=== PATIENT | female | born 1990 | race Caucasian/White ===

== ENCOUNTER 2018-08-08 08:23 | Emergency (ER) | payer OTHER, MEDICAID, SELFPAY ==
[2018-08-08 08:29] VITALS: BP 153/89; PULSE 84; RESP 12; TEMP 37; O2SAT 98
--- NOTE | 2018-08-08 08:55 | ED_ITS ---
HPI - Nausea/Vomiting/Diarrhea General Chief complaint: Nausea/Vomiting/Diarrhea Stated complaint: Throwing up and feeling faint Time Seen by Provider: 08/08/18 08:53 Source: patient Mode of arrival: ambulatory Limitations: no limitations History of Present Illness HPI Narrative: Patient states she has been vomiting and having diarrhea since yesterday morning. She states she was up most of the night vomiting bilious type material. She denies fever, dysuria, or vaginal symptoms. She states she is otherwise healthy, except for some intermittent problems with stomach ulcers over the last 10 years. She denies any hematemesis. She has not had an endoscopy at any time recently, and takes [id number] omeprazole once symptoms flare up. Patient denies sick contacts. No other complaints at this time. Patient states she just finished her period yesterday. MD complaint: nausea, vomiting and diarrhea Onset (ago): day(s) ( 1) Description of Vomiting: bilious Description of Diarrhea: watery Associated Abdominal Pain: Yes ( stabbing, mid abdominal.) Location of pain: periumbilical Radiation: does not radiate Severity: moderate Severity scale (1-10): 4 Quality: cramping and stabbing Pain Consistency: constant Relieving factors: none Exacerbating factors: vomiting Context: other ( No foreign travel or possible food poisoning that patient can identify. No recent antibiotic use or procedure. No abdominal surgery history. ) Associated symptoms: denies other symptoms Related Data Home Medications Medication Instructions Recorded Confirmed multivitamin 1 tab PO DAILY 08/08/18 08/08/18 sertraline 50 mg PO DAILY 08/08/18 08/08/18 trazodone 50 mg PO BEDTIME PRN 08/08/18 08/08/18 Previous Rx's Medication Instructions Recorded ondansetron [Zofran ODT] 4 mg PO Q6-8H PRN #7 tab 08/08/18 Allergies Allergy/AdvReac Type Severity Reaction Status Date / Time codeine Allergy Verified 08/08/18 08:34 Sulfa (Sulfonamide Allergy Verified 08/08/18 08:34 Antibiotics) Review of Systems Review of Systems All systems reviewed & are unremarkable except as noted in HPI and below Constitutional Denies chills, Denies fever(s), Denies lethargy and Denies weakness Eyes Denies change in vision, Denies eye discharge, Denies irritation and Denies loss of vision ENT Ears, Nose, Mouth, and Throat: Denies change in voice, Denies neck pain and Denies sore throat Cardiovascular Denies chest pain, Denies irregular heart rhythm, Denies lightheadedness, Denies palpitations, Denies dyspnea, Denies dyspnea on exertion and Denies orthopnea Respiratory Denies cough, Denies dyspnea, Denies dyspnea on exertion and Denies wheezing Gastrointestinal Gastrointestinal: Reports abdominal pain, Denies change in bowel habits, Reports diarrhea, Reports nausea and Reports vomiting Genitourinary Denies hematuria, Denies flank pain, Denies urinary incontinence and Denies urinary urgency Musculoskeletal Denies neck pain Integumentary/Breasts Denies pruritus, Denies erythema, Denies rash and Denies wounds Neurologic Denies confusion, Denies loss of vision and Denies weakness Psychiatric Denies anxiety, Denies confusion, Denies depression, Denies homicidal ideation and Denies suicidal ideation Endocrine Denies palpitations Hematologic/Lymphatic Denies easy bruising Allergic/Immunologic Denies wheezing PFSH Medical History Peptic ulcer disease (Acute) Surgical History History of esophagogastroduodenoscopy (EGD) (Acute) Social History Smoking Status: Never smoker Exam Initial Vital Signs Initial Vital Signs: Vital Signs Temperature 98.6 F 08/08/18 08:29 Pulse Rate 84 08/08/18 08:29 Respiratory Rate 12 08/08/18 08:29 Blood Pressure 153/89 H 08/08/18 08:29 Pulse Oximetry 98 08/08/18 08:29 Const General: cooperative and well developed Nutritional Appearance: well nourished Orientation: alert, awake, oriented x3 and not confused [facility] Head: normocephalic and atraumatic Ears: external ears normal and TM's normal bilaterally Nose: external nose normal and No nasal discharge Face and sinus: sinuses nontender, face symmetric, no sinus tenderness and No dry mucous membranes Mouth: oral mucosae normal and moist mucous membranes Teeth and gingiva: dentition normal Throat: tonsils normal and uvula midline Eyes General: appearance normal, both eyes and all related structures Eyelids: eyelids normal Conjunctivae: conjunctivae normal Sclera: sclerae normal Pupils: PERRL EOM: EOM intact bilaterally Neck Neck: normal visual inspection, trachea midline, No lymphadenopathy, No midline deformity and No JVD Lymphatic: No lymphedema Chest Chest: normal inspection of the chest Resp Effort & Inspection: normal respiratory effort, able to speak in complete sentences, no respiratory distress and no use of accessory muscles Auscultation: clear to auscultation bilaterally, no rales, no rhonchi and no wheezes Cardio Rate: regular rate Rhythm: regular rhythm Heart Sounds: no click, no gallops, no murmurs and no rubs Pulses: normal peripheral pulses GI Inspection: non-distended Palpation: soft, no hepatosplenomegaly, No guarding, No pulsatile mass and tender ( periumbilical and diffuse lower abdominal) Auscultation: normal bowel sounds Back/Spine/Pelvis Back: No CVA tenderness Cervical Spine: cervical ROM normal and No pain with cervical ROM Thoracic/Lumbar Spine: thoracic and lumbar spine normal to inspection Skin General: no rashes or lesions noted, No jaundice and No petechiae Neuro General: alert, oriented x3, gait normal and no focal motor deficits Speech: speech normal Extrem General: full ROM, no clubbing, cyanosis or edema, no pedal edema and no calf tenderness Psych Appearance: well kempt Mental Status: mental status grossly normal Attitude: cooperative Thought Content: normal and suicidality Judgment: judgment good Course Course Narrative: Patient was treated symptomatically with IV fluids and Zofran. She was worked up with CBC, CMP, and lipase, as well as urinalysis. Orders Ordered: Discontinued Medications Sodium Chloride (Normal Saline 0.9%) 1,000 mls @ 1,000 mls/hr IV BOLUS ONE Stop: 08/08/18 10:02 Last Infusion: 08/08/18 11:27 Dose: 0 mls/hr Admin: 08/08/18 09:41 Dose: 1,000 mls/hr Ondansetron HCl (Zofran) 4 mg IV NOW ONE Stop: 08/08/18 09:04 Last Admin: 08/08/18 09:41 Dose: 4 mg Vital Signs - 8 hr 08/08/18 08:29 Temperature 98.6 F Pulse Rate 84 Respiratory Rate 12 Blood Pressure 153/89 H Pulse Oximetry 98 MDM - Nausea/Vomiting/Diarrhea Medical Records Attestation: I reviewed the patient's medical records. Lab Data Attestation: I reviewed the patient's lab results. Result diagrams: 08/08/18 08:30 08/08/18 09:36 Lab Results 08/08/18 08/08/18 08/08/18 Range/Units 08:30 08:30 09:36 WBC 6.4 (4.5-11.0) X10^3/uL RBC 4.72 (4.0-5.2) X10^6/uL Hgb 15.4 (12.0-16.0) g/dL Hct 43.7 (36-46) % MCV 92.6 (80-100) fL MCH 32.5 (26-34) PG MCHC 35.1 (30-36) % RDW 13.5 (11.6-14.8) % Plt Count 231 (150-400) X10^3/uL Neut % (Auto) 69.0 (50-75) % Lymph % (Auto) 20.3 L (25-40) % [place] % (Auto) 9.4 (3-14) % Eos % (Auto) 0.5 L (2-4) % Baso % (Auto) 0.8 (0-2) % Neut # (Auto) 4400 (2469-3427) /uL Sodium Cancelled 138 Potassium Cancelled 4.4 Chloride Cancelled 101 Carbon Dioxide Cancelled 25 BUN Cancelled 18 H Creatinine Cancelled 0.50 L Estimated GFR Cancelled > 60.0 BUN/Creatinine Ratio Cancelled 36.0 H Glucose Cancelled 81 Calcium Cancelled 8.9 Total Bilirubin Cancelled 0.7 AST Cancelled 64 H ALT Cancelled 45 Alkaline Phosphatase Cancelled 77 Total Protein Cancelled 7.5 Albumin Cancelled 4.5 Globulin Cancelled 3.0 Albumin/Globulin Ratio Cancelled 1.5 Lipase Cancelled 39 Specimen Hemolysis Cancelled Point of Care Testing Test Results Negative Urine Dip Bedside Urine Glucose Negative Bedside Urine Bilirubin - Negative Bedside Urine Ketone +/- 5 Urine Specific [place] 1.020 Bedside Urine Occult Blood - Negative Bedside Urine pH 6.5 Bedside Urine Protein +/- 15 Bedside Urine Urobilinogen - Negative Bedside Urine Nitrite - Negative Bedside Urine Leukocytes - Negative Esterase MDM Narrative Medical decision making narrative: The patient was feeling better after symptomatic treatment. Her workup was unremarkable. I felt the patient most likely has gastroenteritis, and we have discussed symptomatic management at home for this. We have also discussed the usual indications for return. Discharge Plan Departure Patient Disposition: Home Clinical Impression: Gastroenteritis Discharge Date/Time: 10/02/18 12:16 Interventions: ED Discharge Assessment Last Done: 08/08/18 12:15 Instructions: DI for Viral Gastroenteritis -- Adult Activity Restrictions/Additional Instructions: Your labs look good. You most likely have 1 of the viruses that are going around and causing vomiting and diarrhea. Please take them nausea medicine, as needed, and follow up with your primary care physician. Prescriptions: New ondansetron [Zofran ODT] 4 mg tablet,disintegrating 4 mg PO Q6-8H PRN (Reason: nausea and vomiting) Qty: 7 RF: 0 No Action multivitamin Tablet 1 tab PO DAILY RF: 0 trazodone 50 mg tablet 50 mg PO BEDTIME PRN (Reason: Sleep) RF: 0 sertraline 50 mg tablet 50 mg PO DAILY RF: 0
[2018-08-08 09:11] LABS: Add Manual Diff / Slide Review NO; Basophils Percent Auto 0.8 % (0-2); Eosinophils Percent Auto 0.5 % (2-4); Hematocrit 43.7 % (36-46); Hemoglobin 15.4 g/dL (12.0-16.0); Lymphocytes Percent Auto 20.3 % (25-40); Mean Corpuscular HGB Conc 35.1 % (30-36); Mean Corpuscular Hemoglobin 32.5 PG (26-34); Mean Corpuscular Volume 92.6 fL (80-100); Monocytes Percent Auto 9.4 % (3-14); Neutrophils Absolute Auto 4400 /uL (3000-5900); Platelet Count 231 X10^3/uL (150-400); Red Blood Cell Count 4.72 X10^6/uL (4.0-5.2); Red Cell Distribution Width 13.5 % (11.6-14.8); White Blood Cell Count 6.4 X10^3/uL (4.5-11.0)
[2018-08-08 09:30] VITALS: BP 144/84; PULSE 81; RESP 15; O2SAT 98
[2018-08-08] MEDS: ONDANSETRON 4 MG/2 ML INJ IV (09:41)
[2018-08-08] MEDS: SODIUM CHLORIDE 0.9% 1,000 ML 1000 ML IV (09:41)
[2018-08-08 09:57] LABS: Alanine Aminotransferase 45 IU/L (9-52); Albumin 4.5 g/dL (3.5-5.0); Albumin Globulin Ratio 1.5 (1.0-2.8); Alkaline Phosphatase 77 U/L (38-126); Bilirubin Total 0.7 mg/dL (0.2-1.3); Blood Urea Nitrogen 18 mg/dL (7-17); Calcium 8.9 mg/dL (8.4-10.2); Carbon Dioxide 25 mmol/L (22-32); Chloride 101 mmol/L (98-107); Estimated Glomerular Filt Rate > 60.0 mL/min (>60); Glucose 81 mg/dL (70-100); Lipase 39 U/L (23-300); Sodium 138 mmol/L (137-145); Total Protein 7.5 g/dL (6.3-8.2)
[2018-08-08 09:58] LABS: Aspartate Aminotransferase 64 IU/L (14-36); HEMOLYSIS 80 (0-50); Potassium 4.4 mmol/L (3.4-5.1)
[2018-08-08 11:00] VITALS: BP 149/87; PULSE 81; RESP 15; O2SAT 99
[2018-08-08 12:03] VITALS: BP 141/90; PULSE 76; RESP 16; O2SAT 99
== END 2018-08-08 12:16 | disposition home or self-care (01) ==
PROVIDERS: Emergency Provider Emergency Medicine
DX: K52.9 Noninfective gastroenteritis and colitis, unspecified (principal)
CPT/HCPCS: 36415; 36591; 80053; 81003; 81025; 83690; 85025; 96361; 96374; 99283; 99284; J2405

== ENCOUNTER 2018-08-15 12:01 | Emergency (ER) | payer OTHER, MEDICAID, SELFPAY ==
[2018-08-15 12:05] VITALS: BP 143/93; PULSE 90; RESP 13; TEMP 36.6; O2SAT 100
--- NOTE | 2018-08-15 12:43 | DI.US.S_ITS ---
PROCEDURE: US ABDOMEN COMPLETE INDICATIONS: R. UQ and flank pain TECHNIQUE: Real-time scanning was performed of the abdominal and retroperitoneal organs, with image documentation. COMPARISON: None. FINDINGS: Liver: The liver is normal in size and demonstrates diffusely increased echogenicity when compared to the right kidney, which does result in difficulty evaluating for deep liver lesions. No large liver lesions are evident. Gallbladder: The gallbladder is normal in size without gallbladder wall thickening, pericholecystic fluid, or cholelithiasis. Biliary ducts: Intrahepatic bile ducts are non-dilated. Extrahepatic bile duct caliber measures 5 mm. Normal is 6-7 mm or less in diameter, or 10 mm or less post-cholecystectomy. Pancreas: Visualized portions of the pancreas are sonographically normal. Spleen: Spleen is normal in size and homogeneous in echotexture. Kidneys: Kidneys are normal in size and echotexture. Right kidney measures 12.4 cm long; left kidney measures 12.1 cm long. No hydronephrosis or shadowing nephrolithiasis. No solid masses. Aorta: Visualized aorta is normal in caliber at less than 3 cm. Iliacs: Obscured by bowel gas. IVC: Intrahepatic inferior vena cava is patent. Miscellaneous: No free abdominal fluid. IMPRESSION: 1. No cholelithiasis or evidence of acute cholecystitis. 2. Probable hepatic steatosis. Please correct clinically to exclude other chronic liver diseases. Dictated by: Yony Fabian M.D. on 08/15/2018 at 13:59 Approved by: Yony Fabian M.D. on 08/15/2018 at 14:01
--- NOTE | 2018-08-15 12:48 | ED_ITS ---
HPI - Female Genitourinary <Latha Mcneill PA-C - Last Filed: 08/15/18 17:30> General Chief complaint: Urogenital-Female Stated complaint: Thinks she has a kidney stone Time Seen by Provider: 08/15/18 12:31 Source: patient Mode of arrival: ambulatory Limitations: no limitations History of Present Illness HPI Narrative: This 28-year-old female comes in today due to right flank and upper quadrant pain. She states that this started yesterday in her back, and she initially thought it was some sort of muscle strain but she did not hurt herself in any way. She states it has progressively worsened throughout last night and this morning and has felt like ?back labor?. She states that the pain is deep, does not feel like a muscle. Pain increases with pressure on the area or lying on her back. She states that it is constant. No alleviating features. She states that she had a lot of sweats yesterday, persistent nausea and vomited a few times yesterday morning. She has less nausea today but still some present. She has not had any vomiting today. She has had a couple of loose stools today, no blood in the stools. She denies any new urinary symptoms such as dysuria, frequency, urgency or blood in the urine.. She denies any possibility of and is not breast-feeding. She denies any chest pain, dyspnea, pain or swelling in the extremities. She denies any pelvic pain. She states that she has had 2 loose stools today, feels like the ?stomach bug? symptoms that she was seen here for last week have improved significantly prior to onset of this. She is concerned about kidney stone as she has a family history but has not had them herself. She denies any recent exposures or dietary changes and states that she typically eats a whole food, healthy diet Related Data Home Medications Medication Instructions Recorded Confirmed multivitamin 1 tab PO DAILY 08/08/18 08/15/18 sertraline 50 mg PO DAILY 08/08/18 08/15/18 trazodone 50 mg PO BEDTIME PRN 08/08/18 08/15/18 Previous Rx's Medication Instructions Recorded cyclobenzaprine 10 mg PO Q8H PRN #10 tab 08/15/18 tramadol 50 mg PO Q6H PRN #7 tab 08/15/18 Allergies Allergy/AdvReac Type Severity Reaction Status Date / Time codeine Allergy Verified 08/08/18 08:34 Sulfa (Sulfonamide Allergy Verified 08/08/18 08:34 Antibiotics) Review of Systems <Latha Mcneill PA-C - Last Filed: 08/15/18 17:30> Review of Systems All systems reviewed & are unremarkable except as noted in HPI and below Exam <Latha Mcneill PA-C - Last Filed: 08/15/18 17:30> Narrative Exam Narrative: GENERAL APPEARANCE: Patient appears mildly uncomfortable, in NAD HEENT: PERRL, EOMI, no scleral icterus, conjunctivae pink NECK: Supple LUNGS: Clear to auscultation bilaterally. HEART: Rate and rhythm regular, normal S1 and S2, no S3 or S4. ABDOMEN: Soft, nondistended, bowel sounds present x 4 quadrants, no masses palpable, no hepatosplenomegaly. Point tender throughout the right upper quadrant at the costal margin, as well as the right flank. +CVAT. +Judge's. No rebound or guarding. No tenderness elsewhere EXTREMITIES: No edema, no cyanosis no calf tenderness DERMATOLOGIC: No jaundice or exanthem NEUROLOGIC: Alert and oriented with normal speech and coordination Initial Vital Signs Initial Vital Signs: Vital Signs Temperature 97.8 F 08/15/18 12:05 Pulse Rate 90 08/15/18 12:05 Respiratory Rate 13 08/15/18 12:05 Blood Pressure 143/93 H 08/15/18 12:05 Pulse Oximetry 100 08/15/18 12:05 <Camille Nogueira DO - Last Filed: 08/19/18 03:48> Initial Vital Signs Initial Vital Signs: Vital Signs Temperature 97.8 F 08/15/18 12:05 Pulse Rate 90 08/15/18 12:05 Respiratory Rate 13 08/15/18 12:05 Blood Pressure 143/93 H 08/15/18 12:05 Pulse Oximetry 100 08/15/18 12:05 Course <Latha Mcneill PA-C - Last Filed: 08/15/18 17:30> Additional Information: Patient is feeling significantly improved prior to discharge. Advised based on imaging and lab work today there does not appear to be an acute surgical issue going on. This could be musculoskeletal, or perhaps even onset of shingles, which she has had previously, though no exanthem is present today. She would like to return home but agrees to return if any acutely worsening symptoms again, otherwise she will arrange follow-up as an outpatient. Discussed her elevated LFTs and appearance of fatty liver on ultrasound as well. Orders Ordered: Discontinued Medications Acetaminophen (Tylenol) 650 mg PO NOW ONE Stop: 08/15/18 14:57 Last Admin: 08/15/18 15:14 Dose: 650 mg Sodium Chloride (Normal Saline 0.9%) 1,000 mls @ 1,000 mls/hr IV BOLUS ONE Stop: 08/15/18 13:38 Last Infusion: 08/15/18 16:23 Dose: 0 mls/hr Admin: 08/15/18 12:54 Dose: 1,000 mls/hr Ketorolac Tromethamine (Toradol) 30 mg IV NOW ONE Stop: 08/15/18 12:40 Last Admin: 08/15/18 12:53 Dose: 30 mg Ondansetron HCl (Zofran) 4 mg IV NOW ONE Stop: 08/15/18 12:40 Last Admin: 08/15/18 12:53 Dose: 4 mg Tramadol HCl (Ultram) 50 mg PO NOW ONE Stop: 08/15/18 14:57 Last Admin: 08/15/18 15:13 Dose: 50 mg Vital Signs - 8 hr 08/15/18 12:05 08/15/18 16:23 Temperature 97.8 F 98.5 F Pulse Rate 90 95 H Respiratory Rate 13 15 Blood Pressure 143/93 H 138/78 Pulse Oximetry 100 99 <Camille Nogueira DO - Last Filed: 08/19/18 03:48> Orders Ordered: Discontinued Medications Acetaminophen (Tylenol) 650 mg PO NOW ONE Stop: 08/15/18 14:57 Last Admin: 08/15/18 15:14 Dose: 650 mg Sodium Chloride (Normal Saline 0.9%) 1,000 mls @ 1,000 mls/hr IV BOLUS ONE Stop: 08/15/18 13:38 Last Infusion: 08/15/18 16:23 Dose: 0 mls/hr Admin: 08/15/18 12:54 Dose: 1,000 mls/hr Ketorolac Tromethamine (Toradol) 30 mg IV NOW ONE Stop: 08/15/18 12:40 Last Admin: 08/15/18 12:53 Dose: 30 mg Ondansetron HCl (Zofran) 4 mg IV NOW ONE Stop: 08/15/18 12:40 Last Admin: 08/15/18 12:53 Dose: 4 mg Tramadol HCl (Ultram) 50 mg PO NOW ONE Stop: 08/15/18 14:57 Last Admin: 08/15/18 15:13 Dose: 50 mg Vital Signs - 8 hr 08/15/18 12:05 08/15/18 16:23 Temperature 97.8 F 98.5 F Pulse Rate 90 95 H Respiratory Rate 13 15 Blood Pressure 143/93 H 138/78 Pulse Oximetry 100 99 MDM - Female Genitourinary <Latha Mcneill PA-C - Last Filed: 08/15/18 17:30> Lab Data Attestation: I reviewed the patient's lab results. Result diagrams: 08/15/18 12:43 08/15/18 12:43 Lab Results 08/15/18 08/15/18 08/15/18 Range/Units 12:43 12:43 13:05 WBC 10.8 (4.5-11.0) X10^3/uL RBC 4.74 (4.0-5.2) X10^6/uL Hgb 15.5 (12.0-16.0) g/dL Hct 45.1 (36-46) % MCV 95.1 (80-100) fL MCH 32.8 (26-34) PG MCHC 34.4 (30-36) % RDW 13.7 (11.6-14.8) % Plt Count 260 (150-400) X10^3/uL Neut % (Auto) 77.3 H (50-75) % Lymph % (Auto) 13.4 L (25-40) % [place] % (Auto) 8.1 (3-14) % Eos % (Auto) 0.6 L (2-4) % Baso % (Auto) 0.6 (0-2) % Neut # (Auto) 8400 H (0520-7111) /uL Sodium 140 (137-145) mmol/L Potassium 4.1 (3.4-5.1) mmol/L Chloride 101 (98-107) mmol/L Carbon Dioxide 26 (22-32) mmol/L BUN 16 (7-17) mg/dL Creatinine 0.60 (0.52-1.04) mg/dL Estimated GFR > 60.0 (>60) mL/min BUN/Creatinine Ratio 26.7 H (6-22) Glucose 96 (70-100) mg/dL Lactate 0.8 (0.7-2.1) mmol/L Calcium 9.4 (8.4-10.2) mg/dL Total Bilirubin 0.8 (0.2-1.3) mg/dL AST 78 H (14-36) IU/L ALT 54 H (9-52) IU/L Alkaline Phosphatase 98 (38-126) U/L Total Protein 7.9 (6.3-8.2) g/dL Albumin 4.7 (3.5-5.0) g/dL Globulin 3.2 (1.7-4.1) g/dL Albumin/Globulin Ratio 1.5 (1.0-2.8) Lipase 143 D (23-300) U/L Point of Care Testing Test Results Negative Urine Dip Bedside Urine Glucose Negative Bedside Urine Bilirubin - Negative Bedside Urine Ketone - Negative Urine Specific [place] 1.030 Bedside Urine Occult Blood - Negative Bedside Urine pH 6.0 Bedside Urine Protein - Negative Bedside Urine Urobilinogen - Negative Bedside Urine Nitrite - Negative Bedside Urine Leukocytes - Negative Esterase Imaging Data Chest x-ray: Radiologist's impression: [place] [address] XRay Report Signed Patient: Tiffany Hopkins#: [id number] : 1990Acct:[id number] Age/Sex: 28 / FDate of Service: 08/15/18 Loc: ED Accession Number: [id number] Procedure: XR ribs RT min 3V w CXR1V Ordering Provider: Latha Mcneill P.A-C PROCEDURE: XR RIBS RT MIN 3V W CXR 1V INDICATIONS: Right lower rib pain TECHNIQUE: 2 views of the right ribs were acquired, along with a single view chest. COMPARISON: None. FINDINGS: Surgical changes and devices: None. Bones and chest wall: No fractures or dislocations. No suspicious bony lesions. Overlying soft tissues appear unremarkable. Lungs and pleura: No pleural effusions or pneumothorax. Lungs appear clear. Mediastinum: Mediastinal contours appear normal. Heart size is normal. IMPRESSION: No gross rib fracture. No acute cardiopulmonary pathology. Dictated by: Herbert Chen M.D. on 08/15/2018 at 15:40 Approved by: Herbert Chen M.D. on 08/15/2018 at 15:44 <Camille Nogueira DO - Last Filed: 08/19/18 03:48> Lab Data Lab Results 08/15/18 08/15/18 08/15/18 Range/Units 12:43 12:43 13:05 WBC 10.8 (4.5-11.0) X10^3/uL RBC 4.74 (4.0-5.2) X10^6/uL Hgb 15.5 (12.0-16.0) g/dL Hct 45.1 (36-46) % MCV 95.1 (80-100) fL MCH 32.8 (26-34) PG MCHC 34.4 (30-36) % RDW 13.7 (11.6-14.8) % Plt Count 260 (150-400) X10^3/uL Neut % (Auto) 77.3 H (50-75) % Lymph % (Auto) 13.4 L (25-40) % [place] % (Auto) 8.1 (3-14) % Eos % (Auto) 0.6 L (2-4) % Baso % (Auto) 0.6 (0-2) % Neut # (Auto) 8400 H (4362-6390) /uL Sodium 140 (137-145) mmol/L Potassium 4.1 (3.4-5.1) mmol/L Chloride 101 (98-107) mmol/L Carbon Dioxide 26 (22-32) mmol/L BUN 16 (7-17) mg/dL Creatinine 0.60 (0.52-1.04) mg/dL Estimated GFR > 60.0 (>60) mL/min BUN/Creatinine Ratio 26.7 H (6-22) Glucose 96 (70-100) mg/dL Lactate 0.8 (0.7-2.1) mmol/L Calcium 9.4 (8.4-10.2) mg/dL Total Bilirubin 0.8 (0.2-1.3) mg/dL AST 78 H (14-36) IU/L ALT 54 H (9-52) IU/L Alkaline Phosphatase 98 (38-126) U/L Total Protein 7.9 (6.3-8.2) g/dL Albumin 4.7 (3.5-5.0) g/dL Globulin 3.2 (1.7-4.1) g/dL Albumin/Globulin Ratio 1.5 (1.0-2.8) Lipase 143 D (23-300) U/L Point of Care Testing Test Results Negative Urine Dip Bedside Urine Glucose Negative Bedside Urine Bilirubin - Negative Bedside Urine Ketone - Negative Urine Specific [place] 1.030 Bedside Urine Occult Blood - Negative Bedside Urine pH 6.0 Bedside Urine Protein - Negative Bedside Urine Urobilinogen - Negative Bedside Urine Nitrite - Negative Bedside Urine Leukocytes - Negative Esterase Discharge Plan Departure Patient Disposition: Home Clinical Impression: Acute right flank pain Discharge Date/Time: 08/15/18 16:24 Interventions: ED Discharge Assessment Last Done: 08/15/18 16:23 Instructions: DI for Nausea -- Adult, DI for Flank Pain Activity Restrictions/Additional Instructions: Since you are feeling better, it is okay to return home and monitor. Please call your insurance company preferably this afternoon, or 1st thing tomorrow and let them know that you were seen in the emergency room, and cannot follow up at your old clinic. Tell them that you need to be seen for follow-up in the next few days and need to be set up with a PCP who is taking or insurance and who can see you. You should return here as we talked about if you have any acutely worsening symptoms in the interim. I have prescribed some nausea medicine (same as you had in the IV here, called Odansetron) as well as a muscle relaxant called cyclobenzaprine, and tramadol, which you have had in the past for pain. You can take these as needed. The pain medicine and muscle relaxant can make you sleepy, so do not dry. Try to avoid lifting and other activities that could exacerbate possible muscle pain, since the source of your pain today was not exactly clear. Please take Tylenol if you use the tramadol for pain as these work well together. Also continue ibuprofen, 600-800 mg (3-4 of your recr-[id number]-[id number] tablets) every 8 hr with food for pain. Although you do not have any rash today, there is always the possibility of recurrent shingles since you have had that in the past. If you start to develop a rash, please start on your Valtrex that you already have for this. Prescriptions: New cyclobenzaprine 10 mg tablet 10 mg PO Q8H PRN (Reason: flank pain) Qty: 10 RF: 0 tramadol 50 mg tablet 50 mg PO Q6H PRN (Reason: pain in flank) Qty: 7 RF: 0 No Action multivitamin Tablet 1 tab PO DAILY RF: 0 trazodone 50 mg tablet 50 mg PO BEDTIME PRN (Reason: Sleep) RF: 0 sertraline 50 mg tablet 50 mg PO DAILY RF: 0 <Camille Nogueira, - Last Filed: 08/19/18 03:48> Coscarlos a ED Attending Pasha Attestation: I was immediately available in the department for consultation. Documentation has been reviewed. I agree with assessment and plan.
[2018-08-15] MEDS: KETOROLAC 60 MG/2 ML VIAL 30 MG IV (12:53)
[2018-08-15] MEDS: ONDANSETRON 4 MG/2 ML INJ IV (12:53)
[2018-08-15] MEDS: SODIUM CHLORIDE 0.9% 1,000 ML 1000 ML IV (12:54)
[2018-08-15 12:56] LABS: Add Manual Diff / Slide Review NO; Basophils Percent Auto 0.6 % (0-2); Eosinophils Percent Auto 0.6 % (2-4); Hematocrit 45.1 % (36-46); Hemoglobin 15.5 g/dL (12.0-16.0); Lymphocytes Percent Auto 13.4 % (25-40); Mean Corpuscular HGB Conc 34.4 % (30-36); Mean Corpuscular Hemoglobin 32.8 PG (26-34); Mean Corpuscular Volume 95.1 fL (80-100); Monocytes Percent Auto 8.1 % (3-14); Neutrophils Absolute Auto 8400 /uL (3000-5900); Neutrophils Percent Auto 77.3 % (50-75); Platelet Count 260 X10^3/uL (150-400); Red Blood Cell Count 4.74 X10^6/uL (4.0-5.2); Red Cell Distribution Width 13.7 % (11.6-14.8); White Blood Cell Count 10.8 X10^3/uL (4.5-11.0)
[2018-08-15 13:04] LABS: Alanine Aminotransferase 54 IU/L (9-52); Albumin 4.7 g/dL (3.5-5.0); Albumin Globulin Ratio 1.5 (1.0-2.8); Alkaline Phosphatase 98 U/L (38-126); Aspartate Aminotransferase 78 IU/L (14-36); BUN Creatinine Ratio 26.7 (6-22); Bilirubin Total 0.8 mg/dL (0.2-1.3); Blood Urea Nitrogen 16 mg/dL (7-17); Calcium 9.4 mg/dL (8.4-10.2); Carbon Dioxide 26 mmol/L (22-32); Chloride 101 mmol/L (98-107); Estimated Glomerular Filt Rate > 60.0 mL/min (>60); Globulin 3.2 g/dL (1.7-4.1); Glucose 96 mg/dL (70-100); HEMOLYSIS 19 (0-50); Lipase 143 U/L (23-300); Potassium 4.1 mmol/L (3.4-5.1); Sodium 140 mmol/L (137-145); Total Protein 7.9 g/dL (6.3-8.2)
[2018-08-15 13:29] LABS: Lactate (Lactic Acid) 0.8 mmol/L (0.7-2.1)
--- NOTE | 2018-08-15 14:56 | DI.RAD.S_ITS ---
PROCEDURE: XR RIBS RT MIN 3V W CXR 1V INDICATIONS: Right lower rib pain TECHNIQUE: 2 views of the right ribs were acquired, along with a single view chest. COMPARISON: None. FINDINGS: Surgical changes and devices: None. Bones and chest wall: No fractures or dislocations. No suspicious bony lesions. Overlying soft tissues appear unremarkable. Lungs and pleura: No pleural effusions or pneumothorax. Lungs appear clear. Mediastinum: Mediastinal contours appear normal. Heart size is normal. IMPRESSION: No gross rib fracture. No acute cardiopulmonary pathology. Dictated by: Herbert Chen M.D. on 08/15/2018 at 15:40 Approved by: Herbert Chen M.D. on 08/15/2018 at 15:44
[2018-08-15] MEDS: TRAMADOL 50 MG TABLET PO (15:13)
[2018-08-15] MEDS: ACETAMINOPHEN 325 MG TABLET 650 MG PO (15:14)
[2018-08-15 16:23] VITALS: BP 138/78; PULSE 95; RESP 15; TEMP 36.9; O2SAT 99
--- NOTE | 2018-08-17 17:01 | PC.NURSE ---
Attempted follow up phone call. No answer at this time
== END 2018-08-15 16:24 | disposition home or self-care (01) ==
PROVIDERS: Emergency Provider Internal Medicine
DX: R10.9 Unspecified abdominal pain (principal)
CPT/HCPCS: 36415; 71101; 76700; 80053; 81003; 81025; 83605; 83690; 85025; 96361; 96374; 96375; 99283; 99285; J1885; J2405

== ENCOUNTER 2018-12-07 09:37 | Emergency (ER) | payer OTHER, MEDICAID, SELFPAY ==
[2018-12-07 09:42] VITALS: BP 137/92; PULSE 76; RESP 20; TEMP 37.3; O2SAT 97
--- NOTE | 2018-12-07 09:45 | DI.RAD.S_ITS ---
PROCEDURE: XR CHEST 2V INDICATIONS: painful cough TECHNIQUE: 2 views of the chest were acquired. COMPARISON: None. FINDINGS: Surgical changes and devices: None. Lungs and pleura: Lungs are clear. No pleural effusions or pneumothorax. Mediastinum: Mediastinal contours are normal. Heart size is normal. Bones and chest wall: No suspicious bony abnormalities. Soft tissues appear unremarkable. IMPRESSION: Negative chest. No acute cardiopulmonary process is evident. Dictated by: Yony Fabian M.D. on 12/07/2018 at 8:59 Approved by: Yony Fabian M.D. on 12/07/2018 at 9:06
--- NOTE | 2018-12-07 10:35 | PC.NURSE ---
hx of chronic bronchitis, woke up with sudden coughing and chest congestions, bodyaches, denies fever,nausea or vomiting. concern for pneumonia.
[2018-12-07 10:58] VITALS: BP 135/90; PULSE 96; RESP 18; TEMP 37; O2SAT 99
--- NOTE | 2018-12-07 11:36 | ED.URI ---
HPI - URI/Sore Throat General Chief Complaint: Upper Respiratory Symptoms Stated Complaint: think she has Pneumonia Time Seen by Provider: 12/07/18 11:14 Source: patient Mode of arrival: ambulatory Limitations: no limitations History of Present Illness HPI Narrative: Patient is a 28-year-old female who presents with body aches and some cough this morning. She said yesterday she was feeling okay but feels like she got hit by truck this morning. She is afebrile. No productive cough no sore throat. She did not get her influenza shot this year. She has no shortness of breath, no heart palpitations. Related Data Home Medications Medication Instructions Recorded Confirmed multivitamin 1 tab PO DAILY 08/08/18 08/15/18 sertraline 50 mg PO DAILY 08/08/18 08/15/18 trazodone 50 mg PO BEDTIME PRN 08/08/18 08/15/18 Previous Rx's Medication Instructions Recorded cyclobenzaprine 10 mg PO Q8H PRN #10 tab 08/15/18 tramadol 50 mg PO Q6H PRN #7 tab 08/15/18 Allergies Allergy/AdvReac Type Severity Reaction Status Date / Time codeine Allergy Verified 08/08/18 08:34 Sulfa (Sulfonamide Allergy Verified 08/08/18 08:34 Antibiotics) Review of Systems Review of Systems ROS Unobtainable: All systems reviewed & are unremarkable except as noted in HPI and below Constitutional Reports body ache(s), Reports fatigue and Denies fever(s) Cardiovascular Denies chest pain, Denies irregular heart rhythm, Denies lightheadedness, Denies palpitations and Denies orthopnea Respiratory Denies change in phlegm color and Reports cough Gastrointestinal Gastrointestinal: Denies abdominal pain, Denies change in bowel habits, Denies diarrhea, Denies nausea and Denies vomiting Genitourinary Denies hematuria, Denies flank pain, Denies urinary incontinence and Denies urinary urgency Musculoskeletal Denies back pain, Denies muscle weakness, Denies numbness and Denies tingling Integumentary/Breasts Denies pruritus, Denies erythema, Denies rash and Denies wounds Neurologic Denies numbness and Denies tingling Endocrine Reports fatigue and Denies palpitations PFSH Medical History Peptic ulcer disease (Acute) Cataplexy (Acute) Surgical History History of esophagogastroduodenoscopy (EGD) (Acute) Social History Smoking Status: Never smoker Social History Smoking Status: Never smoker Exam Initial Vital Signs Initial Vital Signs: Vital Signs Temperature 99.1 F 12/07/18 09:42 Pulse Rate 76 12/07/18 09:42 Respiratory Rate 20 12/07/18 09:42 Blood Pressure 137/92 H 12/07/18 09:42 Pulse Oximetry 97 12/07/18 09:42 GENERAL: Well-appearing, well-nourished and in no acute distress. HEENT: Head atraumatic,EOMI, pupils reactive, face symmetric, CARDIOVASCULAR: Regular rate and rhythm without murmurs, rubs or gallops. RESPIRATORY: Breath sounds equal bilaterally, no wheezes rales or rhonchi. ABDOMEN: Soft, nontender. Normoactive bowel sounds all 4 quadrants. No guarding or rebound. EXTREMITIES: Normal range of motion, no clubbing or edema. Neurovascularly intact NEUROLOGICAL: Alert and oriented x4.Normal gait and speech. Cranial nerves II through XII grossly intact. SKIN: Warm, dry, no laceration, no petechiae, no rashes or lesions. Course Orders Ordered: ED Orders 12/07/18 09:45 Chest [XR chest 2V] Stat FLU A and B [Influenza A and B by PCR Rapid] Stat Vital Signs - 8 hr 12/07/18 09:42 12/07/18 10:58 Temperature 99.1 F 98.6 F Pulse Rate 76 96 H Respiratory Rate 20 18 Blood Pressure 137/92 H Blood Pressure [Left Arm] 135/90 Pulse Oximetry 97 99 MDM - URI/Sore Throat Lab Data Lab Results 12/07/18 Range/Units 09:45 Influenza A & B (PCR) Positive, type a A (Negative) Imaging Data Chest x-ray: Radiologist's impression: PROCEDURE: XR CHEST 2V INDICATIONS: painful cough TECHNIQUE: 2 views of the chest were acquired. COMPARISON: None. FINDINGS: Surgical changes and devices: None. Lungs and pleura: Lungs are clear. No pleural effusions or pneumothorax. Mediastinum: Mediastinal contours are normal. Heart size is normal. Bones and chest wall: No suspicious bony abnormalities. Soft tissues appear unremarkable. IMPRESSION: Negative chest. No acute cardiopulmonary process is evident. Dictated by: Yony Fabian M.D. on 12/07/2018 at 8:59 Discharge Plan Departure Patient Disposition: Home Clinical Impression: Influenza A Discharge Date/Time: 12/07/18 11:55 Interventions: ED Discharge Assessment Last Done: 12/07/18 12:14 Instructions: DI for Influenza -- Adult Activity Restrictions/Additional Instructions: *You have been diagnosed with influenza a *What to do: Rest, hydrate, fluids, fever control *Continue to take medications as directed Tylenol 650 mg every 4-6 hours if needed for fever or pain Motrin 600 mg every 6-8 hours if needed for fever or pain *Follow up with your primary care provider in 2-3 days *Return to ER if you should have fever not controlled, increased difficulty breathing, productive cough or any new, worsening or concerning symptoms Prescriptions: No Action cyclobenzaprine 10 mg tablet 10 mg PO Q8H PRN (Reason: flank pain) Qty: 10 RF: 0 tramadol 50 mg tablet 50 mg PO Q6H PRN (Reason: pain in flank) Qty: 7 RF: 0 multivitamin Tablet 1 tab PO DAILY RF: 0 trazodone 50 mg tablet 50 mg PO BEDTIME PRN (Reason: Sleep) RF: 0 sertraline 50 mg tablet 50 mg PO DAILY RF: 0 Referrals: Jose Eduardo Joseph MD [Primary Care Provider] -
== END 2018-12-07 11:55 | disposition home or self-care (01) ==
PROVIDERS: Emergency Provider Emergency Medicine
DX: J10.1 Influenza due to other identified influenza virus with other respiratory manifestations (principal)
CPT/HCPCS: 71046; 87400; 99282; 99284

== ENCOUNTER → 2019-01-25 13:43 | Outpatient (CLI) | payer OTHER, MEDICAID, SELFPAY ==
--- NOTE | 2019-01-25 13:44 | DI.US.S_ITS ---
PROCEDURE: US OB <= 14 WEEKS FETUS INDICATIONS: DATING AND VIABILITY OUTSIDE/PRIOR DATING DATA: Last menstrual period (LMP): 11/07/18. LMP-based estimated date of delivery (SHANTELLE): 08/14/19. First dating scan (date and location): 01/25/19. Estimated date of delivery (SHANTELLE) from first dating scan: 08/23/19. TECHNIQUE: Real-time scanning was performed of the fetus and maternal pelvic organs, with image documentation. Endovaginal scanning was also performed to better visualize the fetus and maternal ovaries. COMPARISON: None. FINDINGS: Embryo: Basalt-rump length measures 31 mm corresponding to 10 weeks 0 days. Heart rate measures 171 beats per minute. Measurement variability in dating: +/- 4 weeks by LMP, +/- 7 days by mean sac diameter (use before 6 weeks gestation if crown-rump length not able to be measured), +/- 5 days by crown-rump length (up to 8 weeks 6 days gestation), +/- 7 days by crown-rump length (up to 13 weeks 6 days gestation). Maternal organs: Ovaries within normal limits. Limited images through the kidneys demonstrate no hydronephrosis. IMPRESSION: 10 week 0 day single living IUP. Dictated by: Michael King RRA Interpreted: Rae Mathis MD on 01/25/2019 at 16:04 Approved by: Rae Mathis MD, PhD on 01/25/2019 at 16:07
== END ==
PROVIDERS: Visit Provider Specialist
DX: Z34.01 Encounter for supervision of normal first pregnancy, first trimester (principal); Z3A.10 10 weeks gestation of pregnancy
CPT/HCPCS: 76801

== ENCOUNTER 2019-01-27 08:08 | Day surgery (SDC) | payer OTHER, MEDICAID, SELFPAY ==
[2019-01-27] VITALS (7 sets, daily range): BP systolic 92–117; BP diastolic 58–73; PULSE 76–98; RESP 14–16; TEMP 36.4–37; O2SAT 98–100; BMI 24.9
--- NOTE | 2019-01-27 08:44 | SUR.PREOP ---
Pt currently taking PCN for tooth infection. Pt states started PCN one week ago and is currently taking every 6 hours. pt unware of dosage of PCN. Per pt Dr. Corona aware of this. Anesthesia aware.
[2019-01-27] MEDS: LACTATED RINGERS 1,000 ML 42 ML IV (08:47)
--- NOTE | 2019-01-27 09:04 | PM.PREOP ---
Pre-operative Note Interval Note History & Physical reviewed/Exam performed by Physician: Yes Changes to H&P: No
--- NOTE | 2019-01-27 09:04 | PM.HP.1 ---
History of Present Illness Date Patient Seen: 01/27/19 Time Patient Seen: 09:05 Chief complaint: cyst Narrative: Patient is a 28-year-old 2 para 1 at 10 weeks gestation with a left Bartholin's gland abscess Patient History Medical History Peptic ulcer disease (Acute) Cataplexy (Acute) Surgical History History of esophagogastroduodenoscopy (EGD) (Acute) Social History household members: spouse and children Smoking Status: Never smoker Family & Social History Social History: household members spouse,children Tobacco & Substance use: Smoking Status Never smoker Substance Use Type does not use Meds Home Medications Medication Instructions Recorded Confirmed Type 1 tab PO DAILY 01/17/19 01/17/19 History vitamin,calcium,yowptvle-qtqp-pdeiv acid tablet Allergies Allergy/AdvReac Type Severity Reaction Status Date / Time adhesive tape Allergy Mild Verified 01/27/19 08:27 codeine Allergy Verified 01/27/19 08:27 Sulfa (Sulfonamide Allergy Verified 01/27/19 08:27 Antibiotics) Exam Vital Signs (past 8 hours): - 01/27/19 08:32 Temperature 98.6 F Pulse Rate 98 H Respiratory Rate 15 Blood Pressure 117/73 Pulse Oximetry 100 Oxygen Delivery Method Room Air Narrative Exam Narrative: Generally: A well-developed, well-nourished female, no acute distress Lungs: Clear to auscultation bilaterally Cardiovascular: Regular rate and rhythm Abdomen: Soft and flat. No hepatosplenomegaly External genitalia: 4 cm x 2 cm left Bartholin's gland abscess. Assessment & Plan (1) Bartholin's gland abscess: Current visit: Yes Status: Acute Assessment & Plan narrative: Assessment: 28-year-old 2 para 1 at 10 weeks gestation with a painful left Bartholin's gland abscess Patient unable to tolerate incision and drainage of the abscess in the office Plan: I and D and packing of left Bartholin's gland abscess The risks, benefits, and alternatives to the procedure were explained to the patient. The risks including bleeding and infection. She understands these risks and agrees to proceed. A full PAR-Q was held and consent form was signed. Time Spent With Patient Time with patient: 15-24 minutes
[2019-01-27] MEDS: CEFAZOLIN 2 GM/100 ML FROZ.PIGGY IV (09:05)
[2019-01-27] MEDS: BUPIVACAINE 0.5% W/ EPI (PF) VIAL 2 ML INJ (09:30)
--- NOTE | 2019-01-27 09:42 | PM.GYNOP.1 ---
Operative Date/Time/Diagnoses Date of procedure: 01/27/19 Time of procedure: 09:42 Pre-op diagnosis: 4 x 2 cm Left Bartholins gland abscess Post-op diagnosis: same Procedure: Procedures Operation Date: 01/27/19 09:00 <No data on this case meets the specified criteria> Indications: Symptomatic Left Bartholins gland abscess Unable to tolerate procedure in the office Surgeon: Angelica Corona Anesthesia Type: General and Local (0.5% Marcaine) Operative Notes Findings: 4cm x 2cm Left Bartholins gland abscess Closure Type: not applicable Specimen(s): other (Culture of abscess fluid) Estimated blood loss (mL): 5 Blood products transfused: none Procedure in detail: After informed consent was obtained, the patient was taken to the operating room where she was placed in the dorsal supine position. After adequate LMA general anesthesia was achieved, the patient was placed in the dorsal lithotomy position, and prepped and draped in the usual sterile fashion. On the left side there was a 4 cm x 2 cm left Bartholin's gland abscess that was fluctuant. 6 cc of 0.5% Marcaine with epinephrine were injected over the fluctuant mass. A 1-1/2 cm incision was made. Upon entering the abscess there was copious foul-smelling drainage. Cultures were obtained. The abscess cavity was irrigated with 500 cc of sterile saline. The cavity was packed with approximately 8 cm of 0.5 in Nu Gauze with iodoform. Hemostasis was achieved. Sponge, lap, and instrument counts were correct x2. The patient tolerated the procedure well, and was taken to PACU in stable condition. Complications: none Post-operative Condition: stable Disposition: PACU Plan for aftercare: Home after recovery
[2019-01-27] MEDS: HYDROCODONE/ACET 5/325 TABLET 1 TAB PO (10:11)
== END 2019-01-27 10:37 | disposition home or self-care (01) ==
PROVIDERS: Visit Provider Obstetrics & Gynecology
PROC: (CPT 56440; principal; 2019-01-27 09:00)
DX: N75.1 Abscess of Bartholin's gland (principal)
CPT/HCPCS: 10060; 87070; 87075; 87076; 87077; 87205; J0690; J2704; J3010

== ENCOUNTER → 2019-02-28 10:14 | Outpatient (CLI) | payer OTHER, MEDICAID, SELFPAY ==
[2019-02-28 12:06] LABS: Add Manual Diff / Slide Review NO; Basophils Absolute Auto 0 /uL (0-100); Basophils Percent Auto 0.3 % (0-2); Eosinophils Absolute Auto 100 /uL (0-450); Eosinophils Percent Auto 0.8 % (2-4); Hematocrit 36.2 % (36-46); Hemoglobin 12.6 g/dL (12.0-16.0); Lymphocytes Absolute Auto 1400 /uL (1100-4500); Mean Corpuscular HGB Conc 34.8 % (30-36); Mean Corpuscular Hemoglobin 31.1 PG (26-34); Mean Corpuscular Volume 89.5 fL (80-100); Monocytes Absolute Auto 400 /uL (0-900); Monocytes Percent Auto 5.6 % (3-14); Neutrophils Absolute Auto 6000 /uL (1500-7000); Neutrophils Percent Auto 75.3 % (50-75); Platelet Count 267 X10^3/uL (150-400); Red Blood Cell Count 4.05 X10^6/uL (4.0-5.2); Red Cell Distribution Width 12.4 % (11.6-14.8); White Blood Cell Count 7.9 X10^3/uL (4.5-11.0)
[2019-02-28 12:12] LABS: Appearance Urine UA CLEAR; Bilirubin Urine UA NEGATIVE (NEGATIVE); Color Urine UA YELLOW; Glucose Urine UA NEGATIVE (Negative); Ketones Urine UA NEGATIVE (NEGATIVE); Leukocyte Esterase Urine UA NEGATIVE (NEGATIVE); Nitrite Urine UA NEGATIVE (Negative); Occult Blood Urine UA NEGATIVE (Negative); Protein Urine UA NEGATIVE (Negative); Urobilinogen Urine UA 0.2 E.U./dL (0.2)
[2019-02-28 12:56] LABS: Hepatitis B Surface Antigen NEGATIVE s/c (NEGATIVE); Rubella Antibody IgG 24.2 IU/mL (>15)
[2019-02-28 13:13] LABS: HIV 1 and 2 Antibody NEGATIVE (NEGATIVE); Hep C Virus Ab w/Reflex Quant NEGATIVE s/c (NEGATIVE)
[2019-03-02 15:04] LABS: RPR Screen Nonreactive (Nonreactive)
== END ==
PROVIDERS: PCP Specialist; Visit Provider Specialist
DX: Z34.81 Encounter for supervision of other normal pregnancy, first trimester (principal)
CPT/HCPCS: 36415; 80055; 81003; 86703; 86787; 86803; 86850; 86900; 86901; 87086

== ENCOUNTER → 2019-04-17 12:09 | Outpatient (CLI) | payer OTHER, MEDICAID, SELFPAY ==
--- NOTE | 2019-04-17 12:11 | DI.US.S_ITS ---
PROCEDURE: US OB >= 14 WEEKS FETUS INDICATIONS: Anatomy Scan OUTSIDE/PRIOR DATING DATA: Last menstrual period (LMP): 11/07/18. LMP-based estimated date of delivery (SHANTELLE): 08/14/19. First dating scan (date and location): 01/25/19. Estimated date of delivery (SHANTELLE) from first dating scan: 08/23/19. TECHNIQUE: Real-time scanning was performed of the fetus, with image documentation and biometric measurements. Endovaginal scanning: Not performed COMPARISON: [facility], , US OB >= 14 WEEKS FETUS, 03/21/2019, 15:08. FINDINGS: General: A single living intrauterine gestation is present. Presentation: Breech Placenta: Placental position is on the maternal right/inferior, without previa. Amniotic fluid index: 13.6 cm with the largest vertical fluid pocket measuring 5.8 cm, normal range is 5-24 cm. heart rate: 145 beats per minute. Maternal cervical canal: The 3.7 cm long. Normal lower limit is 2.5 cm. biometrics: Biparietal diameter: 5.4 cm correlating with 22 weeks and 3 days Head circumference: 20.3 cm, correlating with 22 weeks and 3 days Abdominal circumference: 17.2 cm, correlating with 22 weeks and 1 day. Femur length: 3.1 cm, correlating with 19 weeks and 4 days Estimated gestational age from initial scan: 21 weeks and 5 days. Composite gestational age from present scan: 21 weeks and 3 days Estimated weight and percentile: 407 g correlating with the 21st percentile based off gestational age. Measurement variability for biometric dating: +/- 7 days from 14 weeks to 15 weeks 6 days gestation, +/- 10 days from 16 weeks to 21 weeks 6 days gestation, +/- 2 weeks from 22 weeks to 27 weeks 6 days gestation, +/- 3 weeks for 28 weeks gestation or later. weight reference: 4500 g or EFW >90/95% is considered macrosomia or large for gestational age. EFW <10% is small for gestational age. EFW 5% or less is considered intra-uterine growth restriction. Anatomic survey: Neuro: Ventricles are non-dilated at less than 10 mm. Cisterna magna is normal at 3-11 mm. Cerebellum is normal in size and morphology. Nuchal skin fold: Normal at less than 6 mm between 14-21 weeks gestational age. Face: Nose and lips, facial profile are normal. Spine: No evidence for spina bifida. Heart: 4-chambered heart is present, with normal ventricular outflow tracts. Diaphragm: Diaphragm is intact. Stomach: Left-sided stomach is present. Kidneys: No hydronephrosis. Normal is less than 5 mm in 2nd trimester, less than 7 mm in 3rd trimester. Cord: 3-vessel cord has orthotopic insertion. Bladder: Normal in size. Extremities: All 4 extremities identified. IMPRESSION: Single living intrauterine gestation with an estimated sonographic gestational age of approximately 23 weeks and 3 days. Estimated weight measured 407 g which places the fetus at the 21st percentile based off gestational age. Unremarkable anatomic screening survey. However, the femur length measured at the 1st percentile. Dictated by: Taj Lin M.D. on 04/17/2019 at 17:28 Approved by: Taj Lin M.D. on 04/17/2019 at 17:36
== END ==
PROVIDERS: PCP Specialist; Visit Provider Specialist
DX: Z34.92 Encounter for supervision of normal pregnancy, unspecified, second trimester (principal); Z3A.21 21 weeks gestation of pregnancy
CPT/HCPCS: 76811

== ENCOUNTER 2019-05-19 09:01 | Observation (INO) | payer OTHER, MEDICAID, SELFPAY ==
[2019-05-19] MEDS: NIFEdipine 10 MG CAPSULE PO ×4 (10:20→11:25)
[2019-05-19] MEDS: LACTATED RINGERS 1,000 ML 500 ML IV (10:28)
--- NOTE | 2019-05-19 10:32 | PM.OBTRLD ---
Visit Information Visit Information Date of evaluation: 05/19/19 Primary OB Provider: Sara Paredes Reason for Evaluation: Yes pre-term labor and Yes rupture of membranes [facility] Medical History Peptic ulcer disease (Acute) Cataplexy (Acute) Surgical History History of esophagogastroduodenoscopy (EGD) (Acute) Social History (Updated 08/08/18 @ 09:09 by Mireya Romo MD) household members: spouse and children Smoking Status: Never smoker Social History household members: spouse and children Smoking Status: Never smoker Review of Systems Review of Systems All systems reviewed & are unremarkable except as noted in HPI and below Exam Narrative Exam Narrative: 26 cm fundal Vertex presentation Contractions every 5-6 minutes very mild AmniSure negative Evaluation Evaluation Variability: Average (6-10) monitor accelerations: Present monitor decelerations: Absent Uterine Contraction Intensity: Mild Category of Tracing: I Cervical dilation (cm): 0 Cervical effacement (%): 0 station: -4 Non-invasive Membranes Rupture Test: negative Diagnosis, Plan/Disposition Plan/Disposition Plan: Irritable uterus Treat with IV fluids and nifedipine Discharge home OB Disposition: home
--- NOTE | 2019-05-19 10:36 | P.TNLD_ITS ---
Visit Information Visit Information Date of evaluation: 05/19/19 Primary OB Provider: Sara Paredes Reason for Evaluation: Yes pre-term labor and Yes rupture of membranes [facility] Medical History Peptic ulcer disease (Acute) Cataplexy (Acute) Surgical History History of esophagogastroduodenoscopy (EGD) (Acute) Social History (Updated 08/08/18 @ 09:09 by Mireya Romo MD) household members: spouse and children Smoking Status: Never smoker Social History household members: spouse and children Smoking Status: Never smoker Review of Systems Review of Systems All systems reviewed & are unremarkable except as noted in HPI and below Exam Narrative Exam Narrative: 26 cm fundal Vertex presentation Contractions every 5-6 minutes very mild AmniSure negative Evaluation Evaluation Variability: Average (6-10) monitor accelerations: Present monitor decelerations: Absent Uterine Contraction Intensity: Mild Category of Tracing: I Cervical dilation (cm): 0 Cervical effacement (%): 0 station: -4 Non-invasive Membranes Rupture Test: negative Diagnosis, Plan/Disposition Plan/Disposition Plan: Irritable uterus Treat with IV fluids and nifedipine Discharge home OB Disposition: home
== END 2019-05-19 12:38 | disposition home or self-care (01) ==
PROVIDERS: PCP Specialist
DX: O47.02 False labor before 37 completed weeks of gestation, second trimester (principal); Z3A.26 26 weeks gestation of pregnancy
CPT/HCPCS: 59025; 59050; 84112; 96360; G0378; G0379

== ENCOUNTER → 2019-05-22 07:59 | Outpatient (CLI) | payer OTHER, MEDICAID, SELFPAY ==
--- NOTE | 2019-05-22 08:05 | DI.US.S_ITS ---
PROCEDURE: US OB LIMITED INDICATIONS: AMNIOTIC FLUID INDEX, UMBILICAL ARTERY DOPPLER OUTSIDE/PRIOR DATING DATA: Last menstrual period (LMP): 11/07/18. LMP-based estimated date of delivery (SHANTELLE): 08/24/19. First dating scan (date and location): 01/25/19. Estimated date of delivery (SHANTELLE) from first dating scan: 08/23/19. TECHNIQUE: Real-time scanning was performed of the fetus, with image documentation. Endovaginal scanning: Not performed COMPARISON: None. FINDINGS: A single living intrauterine gestation is present. Presentation: Vertex Placenta: Placental position is right anterior, without previa. Amniotic fluid index: 18.9 cm, normal range is 5-24 cm. heart rate: 149 beats per minute. Maternal cervical canal: 3.5 cm long. Normal lower limit is 2.5 cm. Estimated gestational age from initial scan: 10 week zero day. Umbilical artery SD ratio measures 2.7-2.8, and are within normal limits. Limited evaluation of stomach, bladder, kidneys show no gross abnormality. IMPRESSION: 1. Single live intrauterine with fetus in vertex presentation. No placenta previa. 2. Normal umbilical artery SD ratio. Dictated by: Herbert Chen M.D. on 05/23/2019 at 8:32 Approved by: Herbert Chen M.D. on 05/23/2019 at 8:35
== END ==
PROVIDERS: PCP Specialist; Visit Provider Specialist
DX: Z03.71 Encounter for suspected problem with amniotic cavity and membrane ruled out (principal)
CPT/HCPCS: 76815

== ENCOUNTER → 2019-06-16 10:53 | Outpatient (CLI) | payer OTHER, MEDICAID, SELFPAY ==
[2019-06-16 13:17] LABS: Hemoglobin 12.2 g/dL (12.0-16.0)
[2019-06-16 13:21] LABS: GTT (PREG) 1 Hour PP 50gm Dose 133 mg/dL (76-139)
== END ==
PROVIDERS: PCP Specialist; Visit Provider Specialist
DX: Z34.82 Encounter for supervision of other normal pregnancy, second trimester (principal); Z3A.26 26 weeks gestation of pregnancy
CPT/HCPCS: 36415; 82950; 85014; 85018

== ENCOUNTER 2019-06-22 09:15 | Outpatient (CLI) | payer OTHER, MEDICAID, SELFPAY ==
--- NOTE | 2019-06-22 10:06 | PM.OBTRLD ---
Visit Information Visit Information Date of evaluation: 06/22/19 Primary OB Provider: Sara Paredes Reason for Evaluation: Yes non-stress test non-stress test reason: other (S GA) [facility] Social History household members: spouse and children Smoking Status: Never smoker Evaluation Evaluation Baseline heart rate: 140 Variability: Moderate (11-25) monitor accelerations: Present monitor decelerations: Absent Contraction Frequency (minutes): 0 Category of Tracing: I Diagnosis, Plan/Disposition Final Diagnosis (1) Small for gestational age fetus affecting management of mother in [place] in third trimester: Current Visit: Yes Status: Acute (2) 31 weeks gestation of : Current Visit: Yes Status: Acute Plan/Disposition Plan: Twice weekly NSTs, weekly appointments, follow-up appointment scheduled with perinatology in 10 days. OB Disposition: home
--- NOTE | 2019-06-22 10:09 | P.TNLD_ITS ---
Visit Information Visit Information Date of evaluation: 06/22/19 Primary OB Provider: Sara Paredes Reason for Evaluation: Yes non-stress test non-stress test reason: other (S GA) [facility] Social History household members: spouse and children Smoking Status: Never smoker Evaluation Evaluation Baseline heart rate: 140 Variability: Moderate (11-25) monitor accelerations: Present monitor decelerations: Absent Contraction Frequency (minutes): 0 Category of Tracing: I Diagnosis, Plan/Disposition Final Diagnosis (1) Small for gestational age fetus affecting management of mother in [place] in third trimester: Current Visit: Yes Status: Acute (2) 31 weeks gestation of : Current Visit: Yes Status: Acute Plan/Disposition Plan: Twice weekly NSTs, weekly appointments, follow-up appointment scheduled with perinatology in 10 days. OB Disposition: home
== END 2019-06-22 10:15 | disposition home or self-care (01) ==
LOC: LABOR 09:54 → OB 06-26 09:32
PROVIDERS: PCP Specialist; Visit Provider Specialist
DX: O36.5930 Maternal care for other known or suspected poor fetal growth, third trimester, not applicable or unspecified (principal); Z3A.31 31 weeks gestation of pregnancy
CPT/HCPCS: 59025; G0378; G0379

== ENCOUNTER 2019-06-25 07:44 | Outpatient (CLI) | payer OTHER, MEDICAID, SELFPAY | END 2019-06-25 08:50 | disposition home or self-care (01) | LOC: LABOR 08:45 → OB 06-26 09:36 | PROVIDERS: PCP Specialist; Visit Provider Specialist | DX: O99.353 Diseases of the nervous system complicating pregnancy, third trimester (principal); G40.909 Epilepsy, unspecified, not intractable, without status epilepticus; Z3A.31 31 weeks gestation of pregnancy | CPT/HCPCS: 59025; G0378; G0379 ==

== ENCOUNTER 2019-06-27 11:01 | Outpatient (CLI) | payer OTHER, MEDICAID, SELFPAY ==
--- NOTE | 2019-06-27 11:37 | PM.OBTRLD ---
Visit Information Visit Information Date of evaluation: 06/27/19 Primary OB Provider: Sara Paredes Reason for Evaluation: Yes non-stress test non-stress test reason: other (SGA) [facility] Social History household members: spouse and children Smoking Status: Never smoker Evaluation Evaluation Baseline heart rate: 140 Variability: Moderate (11-25) monitor accelerations: Present monitor decelerations: Absent Category of Tracing: I Diagnosis, Plan/Disposition Final Diagnosis (1) Small for gestational age fetus affecting management of mother in [place] in third trimester: Current Visit: No Status: Acute (2) 32 weeks gestation of : Current Visit: Yes Status: Acute Plan/Disposition Plan: Twice weekly NSTs. OB Disposition: home
== END 2019-06-27 11:30 | disposition home or self-care (01) ==
LOC: LABOR 12:35 → OB 06-29 12:42
PROVIDERS: PCP Specialist; Visit Provider Specialist
DX: O36.5930 Maternal care for other known or suspected poor fetal growth, third trimester, not applicable or unspecified (principal); Z3A.32 32 weeks gestation of pregnancy
CPT/HCPCS: 59025; G0378; G0379

== ENCOUNTER 2019-06-30 10:20 | Outpatient (CLI) | payer OTHER, MEDICAID, SELFPAY | END 2019-06-30 10:59 | disposition home or self-care (01) | LOC: OB 07-03 11:04 | PROVIDERS: PCP Specialist; Visit Provider Specialist | DX: O36.5930 Maternal care for other known or suspected poor fetal growth, third trimester, not applicable or unspecified (principal); O99.353 Diseases of the nervous system complicating pregnancy, third trimester; Z3A.32 32 weeks gestation of pregnancy | CPT/HCPCS: 59025; 59050; G0378; G0379 ==

== ENCOUNTER → 2019-10-18 12:26 | Outpatient (CLI) | payer OTHER, MEDICAID, SELFPAY ==
--- NOTE | 2019-10-18 12:29 | DI.RAD.S_ITS ---
PROCEDURE: XR SHOULDER RT MIN 2V INDICATIONS: right shoulder pain and popping TECHNIQUE: 3 views of the shoulder were acquired. COMPARISON: None. FINDINGS: Bones: No fractures. There is 4 mm superior subluxation of the distal clavicle at the acromioclavicular joint. No suspicious bony lesions. Visualized ribs appear intact. Soft tissues: No suspicious soft tissue calcifications. IMPRESSION: 4 mm superior subluxation of the distal clavicle at the acromioclavicular joint, suspicious for a.c. separation. Recommend clinical correlation. Weightbearing views of the acromioclavicular joints maybe helpful. Dictated by: Kayleen Mills M.D. on 10/18/2019 at 18:01 Approved by: Kayleen Mills M.D. on 10/18/2019 at 18:03
== END ==
PROVIDERS: PCP Specialist; Visit Provider Nurse Practitioner Family
DX: M25.511 Pain in right shoulder (principal); S43.111A Subluxation of right acromioclavicular joint, initial encounter; X58.XXXA Exposure to other specified factors, initial encounter
CPT/HCPCS: 73030

== ENCOUNTER 2019-12-22 13:36 | Emergency (ER) | payer OTHER, MEDICAID, SELFPAY ==
[2019-12-22 14:06] VITALS: BP 151/85; PULSE 94; RESP 19; TEMP 36.7; O2SAT 97; BMI 23.3
--- NOTE | 2019-12-22 17:54 | DI.CT.S_ITS ---
PROCEDURE: CT CERVICAL SPINE WO CON INDICATIONS: syncope x2, C-7 pain, swelling TECHNIQUE: Noncontrast 3 mm thick sections acquired from the skull base to the T4 level. Sagittal and coronal reformats were then constructed. For radiation dose reduction, the following was used: automated exposure control, adjustment of mA and/or kV according to patient size. COMPARISON: None. FINDINGS: Image quality: Excellent. Bones: No fractures or dislocations. Visualized superior ribs are intact. Soft tissues: Prevertebral soft tissues are normal in thickness. No paravertebral hematomas. No apical pneumothoraces. Shotty bilateral cervical adenopathy. IMPRESSION: No evidence acute cervical fracture or dislocation. Dictated by: Anthony Puentes M.D. on 12/22/2019 at 19:00 Approved by: Anthony Puentes M.D. on 12/22/2019 at 19:02
--- NOTE | 2019-12-22 17:55 | DI.CT.S_ITS ---
PROCEDURE: CT HEAD/BRAIN WO CON INDICATIONS: syncope, dizziness TECHNIQUE: Noncontrast 4.5 mm thick angled axial sections acquired from the foramen magnum to the vertex, with coronal and sagittal reformats. For radiation dose reduction, the following was used: automated exposure control, adjustment of mA and/or kV according to patient size. COMPARISON: None. FINDINGS: Image quality: Excellent. CSF spaces: Basal cisterns are patent. No extra-axial fluid collections. Ventricles are normal in size and shape. Brain: No midline shift. No intracranial masses or hemorrhage. Rodriguez-white matter interface is normal. Skull and face: Calvarium and visualized facial bones are intact, without suspicious lesions. Sinuses: Visualized sinuses and mastoids are clear. IMPRESSION: Negative head CT. No evidence acute stroke, hemorrhage, or mass. Dictated by: Anthony Puentes M.D. on 12/22/2019 at 19:00 Approved by: Anthony Puentes M.D. on 12/22/2019 at 19:00
[2019-12-22 18:53] LABS: Add Manual Diff / Slide Review NO; Basophils Absolute Auto 100 /uL (0-100); Basophils Percent Auto 1.2 % (0-2); Eosinophils Absolute Auto 100 /uL (0-450); Eosinophils Percent Auto 1.2 % (2-4); Hematocrit 44.4 % (36-46); Hemoglobin 15.3 g/dL (12.0-16.0); Lymphocytes Absolute Auto 1900 /uL (1100-4500); Lymphocytes Percent Auto 36.2 % (25-40); Mean Corpuscular HGB Conc 34.4 % (30-36); Monocytes Absolute Auto 600 /uL (0-900); Monocytes Percent Auto 11.7 % (3-14); Neutrophils Absolute Auto 2700 /uL (1500-7000); Neutrophils Percent Auto 49.7 % (50-75); Platelet Count 203 X10^3/uL (150-400); Red Blood Cell Count 4.62 X10^6/uL (4.0-5.2); Red Cell Distribution Width 12.9 % (11.6-14.8); White Blood Cell Count 5.4 X10^3/uL (4.5-11.0)
[2019-12-22 19:09] LABS: Alanine Aminotransferase 147 IU/L (<35); Albumin 4.9 g/dL (3.5-5.0); Albumin Globulin Ratio 1.4 (1.0-2.8); Alkaline Phosphatase 103 U/L (38-126); Aspartate Aminotransferase 148 IU/L (14-36); Bilirubin Total 0.3 mg/dL (0.2-1.3); Blood Urea Nitrogen 11 mg/dL (7-17); C-Reactive Protein Quant < 0.5 mg/dL (<1.0); Calcium 9.5 mg/dL (8.4-10.2); Carbon Dioxide 26 mmol/L (22-32); Chloride 100 mmol/L (98-107); Estimated Glomerular Filt Rate > 60.0 mL/min (>60); Globulin 3.4 g/dL (1.7-4.1); Glucose 73 mg/dL (70-100); HEMOLYSIS 21 (0-50); Potassium 3.8 mmol/L (3.4-5.1); Sodium 138 mmol/L (137-145); Total Protein 8.3 g/dL (6.3-8.2)
[2019-12-22] MEDS: SODIUM CHLORIDE 0.9% 1,000 ML 1000 ML IV (19:16)
[2019-12-22 19:18] LABS: Erythrocyte Sedimentation Rate 1 MM/HR (0-20)
[2019-12-22] MEDS: ACETAMINOPHEN 325 MG TABLET 650 MG PO (19:28)
[2019-12-22] MEDS: KETOROLAC 60 MG/2 ML VIAL 30 MG IV (19:28)
[2019-12-22 20:05] VITALS: BP 160/89; PULSE 84; RESP 18; O2SAT 99
[2019-12-22] MEDS: LIDOCAINE PATCH 1 EACH ADH..PATCH TOP (21:05)
[2019-12-22] MEDS: CYCLOBENZAPRINE 10 MG TABLET PO (21:06)
--- NOTE | 2019-12-23 01:59 | ED_ITS ---
HPI - Skin/Abscess/Foreign Bdy <NELSON Lazo - Last Filed: 12/23/19 02:38> General Chief complaint: Skin/Abscess/Foreign Body Stated complaint: giant lump on spine on neck/painful Time Seen by Provider: 12/22/19 16:30 Source: patient Mode of arrival: Family Vehicle Limitations: no limitations History of Present Illness HPI narrative: This is a 29-year-old female, former smoker, who presents to ED with family member with chief complain of posterior lower neck pain and a lump she feel when she flexes her neck since yesterday. She reports this increases with palpation and putting pressure and rotating her head side to side and reports as constant throbbing. Patient reports she also had 2 witnessed fainting episodes within 1 week and she was assisted by her off the floor. And she is complaining of dizziness which is rather lightheaded than spinning sensation and with tunnel vision and headaches. Patient denies other accident or injury. She denies fever, chills, nausea or vomiting. She has a history of cataplexis and she had 2 episodes of grand mal seizures about 2 months ago. Patient stopped antiepileptic medications for about 2 years since she was back to [facility] with 2 children and currently 4 month . She is waiting for an appointment with [facility] neurology clinic. She denies alcohol or street drug use. Related Data Previous Rx's Medication Instructions Recorded cyclobenzaprine 5 - 10 mg PO BEDTIME PRN #7 tab 12/22/19 lidocaine 1 patch TOP Q24H #30 each 12/22/19 Allergies Allergy/AdvReac Type Severity Reaction Status Date / Time adhesive tape Allergy Mild Verified 12/22/19 14:11 codeine Allergy Verified 12/22/19 14:11 Sulfa (Sulfonamide Allergy Verified 12/22/19 14:11 Antibiotics) Review of Systems <NELSON Lazo - Last Filed: 12/23/19 02:38> Review of Systems Narrative: General: Denies fever, chills, fatigue, malaise, sweats. HEENT: Denies sinus pain, ear pain, sore throat, difficulty swallowing, (+) dizziness. Respiratory: Denies dyspnea, cough, wheezing, hemoptysis, sputum. Cardiovascular: Denies chest pain, palpitations, orthopnea, edema. Gastrointestinal: Denies nausea, vomiting, abdominal pain, diarrhea, constipation, melena. : Denies dysuria, frequency, incontinence, hematuria, urinary retention. Musculoskeletal: See HPI Skin: Denies rash, skin lesions, or other. Neurologic: Denies weakness, (+) headache, numbness, change in speech, (+) syn cope, (+) tunnel vision, confusion, seizures, incoordination. Psychiatric: No concerning psychosocial issues. 12-point review of systems is negative except for those stated above. Patient History <NELSON Lazo - Last Filed: 12/23/19 02:38> Medical History Cataplexy (Acute) Ingrown toenail of right foot (Acute) Narcolepsy and cataplexy (Acute) Peptic ulcer disease (Acute) Seizure disorder (Acute) Surgical History Anesthesia (Resolved) History of esophagogastroduodenoscopy (EGD) (Acute) History of tonsillectomy (Resolved ~2003) Family History Father Cancer Mother Cancer History of heart disease Grandfather Cancer Diabetes mellitus Grandmother Cancer Diabetes mellitus Grandfather Cancer Diabetes mellitus Grandmother Cancer Diabetes mellitus Social History household members: spouse and children Smoking Status: Never smoker second hand exposure: No alcohol intake: never substance use type: does not use Smoking Status: Never smoker alcohol intake frequency: holidays/special occasions only Substance Use Type: does not use Exam <NELSON Lazo - Last Filed: 12/23/19 02:38> Narrative Exam Narrative: GEN: Alert, oriented x 3, well appearing and nourished, and in no acute distress. Head: Normal cephalic, atraumatic. No scalp or temporal tenderness, palpable mass or rash. EYES: Pupils are equal, round, and reactive to light and accommodation. Extraocular muscles are intact bilaterally. There is no subconjunctival h emorrhage, exudate and sclera non-icteric. ENT: Bilateral auditory canals and tympanic membranes clear. Hearing grossly intact. Nose without bleeding, purulent discharge, septal hematoma or deviati on. Turbinate without erythema or swelling. Facial sinuses nontender to palpate. Mucous membrane moist, no mucosal lesion. Throat without erythema, tonsillar hypertrophy or exudate. Uvula in midline, airway patent. Neck: Trachea in midline. No JVD, non-tender without lymphadenopathy. No mas ses or thyroid megaly. Supple, TTP in mid posterior C-7 region and and no meningeal signs. No erythema, fluctuation, warmth or appreciated in posterior neck. CARDIAC: Normal regular rate and rhythm without murmurs, gallops, or rubs. No chest wall tenderness. No peripheral edema, cyanosis or pallor. Capillary refill is less than 2 seconds. No carotid bruits. RESPIRATORY: Lungs are cleat to auscultate bilaterally. No cough, wheezes, rales, or rhonchi. No stridor, respiratory distress, increase work of breathing, or accessary muscle used. ABD: Abdomen soft, nontender and non-distended. No guarding or rebound tenderness to palpate. Bowel sounds are normal in all 4 quadrants. There is no palpable masses or organomegaly. EXT: Full painless ROM of all extremities with no loss of sensation, strength, effusion or edema. SKIN: Warm, dry, normal color for patient. No erythema, lesions or rash. BACK: Nontender without deformity or crepitance. No flank tenderness. NEUROLOGICAL: Alert and oriented to place, time and person. No facial droops, dysphasia. CN II-XII intact. Strength and sensation symmetric and intact throughout. Cerebellar testing normal. PSYCHIATRIC: Good judgement and reason, without hallucinations, abnormal affect or abnormal behaviors during the examination. Initial Vital Signs Initial Vital Signs: Vital Signs Temperature 98.0 F 12/22/19 14:06 Pulse Rate 94 H 12/22/19 14:06 Respiratory Rate 19 12/22/19 14:06 Blood Pressure 151/85 H 12/22/19 14:06 Pulse Oximetry 97 12/22/19 14:06 <Yousif Everett MD - Last Filed: 12/23/19 23:17> Initial Vital Signs Initial Vital Signs: Vital Signs Temperature 98.0 F 12/22/19 14:06 Pulse Rate 94 H 12/22/19 14:06 Respiratory Rate 19 12/22/19 14:06 Blood Pressure 151/85 H 12/22/19 14:06 Pulse Oximetry 97 12/22/19 14:06 Scores <NELSON Lazo - Last Filed: 12/23/19 02:38> GCS Jacquie coma scale eye opening: Spontaneous Verona coma scale verbal response: Orientated Jacquie coma scale motor response: Obey commands Verona coma scale total score: 15 Nexus Score for C-Spine Focal Neurologic deficit present: No Midline spinal tenderness present: Yes Altered level of conciousness present: No Intoxication present: No Distracting Injury Present: No Nexus Criteria for C-spine: 1 NIH Stroke Scale Level of Conciousness: Alert, keenly responsive Ask month/age: Answers both questions correctly. Open/close eyes, close hand: Performs both tasks correctly Best gaze horizontal: Normal Visual tavera: No visual loss Facial palsy: Normal symetrical movement Left arm drift: No drift for full 10 sec Right arm drift: No drift for full 10 sec Left leg drift: No drift for full 10 sec Right leg drift: No drift for full 10 sec Limb ataxia: Absent Sensory on face/arms/legs: Normal, no sensory loss Best language: No aphasia, normal Dysarthria: Normal Extinction or inattention: No abnormality Total NIH Stroke scale score: 0 Course <NELSON Lazo - Last Filed: 12/23/19 02:38> Orders Ordered: Discontinued Medications Acetaminophen (Tylenol) 650 mg PO NOW ONE Stop: 12/22/19 19:20 Last Admin: 12/22/19 19:28 Dose: 650 mg Documented by: SINA Cyclobenzaprine HCl (Flexeril) 10 mg PO NOW ONE Stop: 12/22/19 20:10 Last Admin: 12/22/19 21:06 Dose: 10 mg Documented by: SINA Sodium Chloride (Normal Saline 0.9%) 1,000 mls @ 1,000 mls/hr IV BOLUS ONE Stop: 12/22/19 18:53 Last Admin: 12/22/19 19:16 Dose: 1,000 mls/hr Documented by: SINA Ketorolac Tromethamine (Toradol) 30 mg IV NOW ONE Stop: 12/22/19 19:20 Last Admin: 12/22/19 19:28 Dose: 30 mg Documented by: SINA Lidocaine (Lidoderm) 1 each TOP NOW ONE Stop: 12/22/19 20:10 Last Admin: 12/22/19 21:05 Dose: 1 each Documented by: SINA Vital Signs Vital signs: Vital Signs - 8 hr 12/22/19 20:05 Pulse Rate 84 Respiratory Rate 18 Blood Pressure [Left Arm] 160/89 H Pulse Oximetry 99 <Yousif Everett MD - Last Filed: 12/23/19 23:17> Orders Ordered: Discontinued Medications Acetaminophen (Tylenol) 650 mg PO NOW ONE Stop: 12/22/19 19:20 Last Admin: 12/22/19 19:28 Dose: 650 mg Documented by: SINA Cyclobenzaprine HCl (Flexeril) 10 mg PO NOW ONE Stop: 12/22/19 20:10 Last Admin: 12/22/19 21:06 Dose: 10 mg Documented by: SINA Sodium Chloride (Normal Saline 0.9%) 1,000 mls @ 1,000 mls/hr IV BOLUS ONE Stop: 12/22/19 18:53 Last Admin: 12/22/19 19:16 Dose: 1,000 mls/hr Documented by: SINA Ketorolac Tromethamine (Toradol) 30 mg IV NOW ONE Stop: 12/22/19 19:20 Last Admin: 12/22/19 19:28 Dose: 30 mg Documented by: SINA Lidocaine (Lidoderm) 1 each TOP NOW ONE Stop: 12/22/19 20:10 Last Admin: 12/22/19 21:05 Dose: 1 each Documented by: SINA Vital Signs Vital signs: Vital Signs - 8 hr 12/22/19 20:05 Pulse Rate 84 Respiratory Rate 18 Blood Pressure [Left Arm] 160/89 H Pulse Oximetry 99 MDM - Skin/Abscess/Foreign Bdy <NELSON Lazo - Last Filed: 12/23/19 02:38> Differential Diagnosis Differential diagnosis: Likely abscess of skin or subcutaneous tissue and other (posterior neck abscess, c spine fracture, arrhythmia, cranial hemorrhage, cranial mass) Medical Records Attestation: I reviewed the patient's medical records. Lab Data Attestation: I reviewed the patient's lab results. Result diagrams: 12/22/19 18:40 12/22/19 18:40 Labs: Lab Results 12/22/19 12/22/19 Range/Units 18:40 18:40 WBC 5.4 (4.5-11.0) X10^3/uL RBC 4.62 (4.0-5.2) X10^6/uL Hgb 15.3 (12.0-16.0) g/dL Hct 44.4 (36-46) % MCV 96.0 (80-100) fL MCH 33.0 (26-34) PG MCHC 34.4 (30-36) % RDW 12.9 (11.6-14.8) % Plt Count 203 (150-400) X10^3/uL Neut % (Auto) 49.7 L (50-75) % Lymph % (Auto) 36.2 (25-40) % Sanders % (Auto) 11.7 (3-14) % Eos % (Auto) 1.2 L (2-4) % Baso % (Auto) 1.2 (0-2) % Neut # (Auto) 2700 (6715-9995) /uL Lymph # (Auto) 1900 (5988-2733) /uL Sanders # (Auto) 600 (0-900) /uL Eos # (Auto) 100 (0-450) /uL Baso # (Auto) 100 (0-100) /uL ESR 1 (0-20) MM/HR Sodium 138 (137-145) mmol/L Potassium 3.8 (3.4-5.1) mmol/L Chloride 100 (98-107) mmol/L Carbon Dioxide 26 (22-32) mmol/L BUN 11 (7-17) mg/dL Creatinine 0.50 L (0.52-1.04) mg/dL Estimated GFR > 60.0 (>60) mL/min BUN/Creatinine Ratio 22.0 (6-22) Glucose 73 (70-100) mg/dL Calcium 9.5 (8.4-10.2) mg/dL Total Bilirubin 0.3 (0.2-1.3) mg/dL AST 148 H (14-36) IU/L ALT 147 H (<35) IU/L Alkaline Phosphatase 103 (38-126) U/L C-Reactive Protein < 0.5 (<1.0) mg/dL Total Protein 8.3 H (6.3-8.2) g/dL Albumin 4.9 (3.5-5.0) g/dL Globulin 3.4 (1.7-4.1) g/dL Albumin/Globulin Ratio 1.4 (1.0-2.8) Point of Care Testing Test Results Negative Urine Dip Bedside Urine Glucose Negative Bedside Urine Bilirubin - Negative Bedside Urine Ketone - Negative Urine Specific Seguin 1.015 Bedside Urine Occult Blood - Negative Bedside Urine pH 6.5 Bedside Urine Protein +/- 15 Bedside Urine Urobilinogen +/- 1mg Bedside Urine Nitrite - Negative Bedside Urine Leukocytes +/- [address] scan - head: Radiologist's Impression: [address] [address] [address] Scan Report Signed Patient: Tiffany Hopkins [facility]#: [id number] : 1990Acct:[id number] Age/Sex: te of Service: 12/22/19 Loc: ED Accession Number: [id number] Procedure: CT head/brain wo con Ordering Provider: Adonis Lilly PROCEDURE: CT HEAD/BRAIN WO CON INDICATIONS: syncope, dizziness TECHNIQUE: Noncontrast 4.5 mm thick angled axial sections acquired from the foramen magnum to the vertex, with coronal and sagittal reformats. For radiation dose reduction, the following was used: automated exposure control, adjustment of mA and/or kV according to patient size. COMPARISON: None. FINDINGS: Image quality: Excellent. CSF spaces: Basal cisterns are patent. No extra-axial fluid collections. Ventricles are normal in size and shape. Brain: No midline shift. No intracranial masses or hemorrhage. Rodriguez-white matter interface is normal. Skull and face: Calvarium and visualized facial bones are intact, without suspicious lesions. Sinuses: Visualized sinuses and mastoids are clear. IMPRESSION: Negative head CT. No evidence acute stroke, hemorrhage, or mass. Dictated by: Anthony Puentes M.D. on 12/22/2019 at 19:00 Approved by: Anthony Puentes M.D. on 12/22/2019 at 19:00 CT - cervical spine: Radiologist's Impression: [address] [address] [address] Scan Report Signed Patient: Tiffany Hopkins [facility]#: [id number] : 1990Acct:[id number] Age/Sex: FDate of Service: 12/22/19 Loc: ED Accession Number: [id number] Procedure: CT cervical spine wo con Ordering Provider: Adonis Lilly PROCEDURE: CT CERVICAL SPINE WO CON INDICATIONS: syncope x2, C-7 pain, swelling TECHNIQUE: Noncontrast 3 mm thick sections acquired from the skull base to the T4 level. Sagittal and coronal reformats were then constructed. For radiation dose reduction, the following was used: automated exposure control, adjustment of mA and/or kV according to patient size. COMPARISON: None. FINDINGS: Image quality: Excellent. Bones: No fractures or dislocations. Visualized superior ribs are intact. Soft tissues: Prevertebral soft tissues are normal in thickness. No paraver tebral hematomas. No apical pneumothoraces. Shotty bilateral cervical adenopathy. IMPRESSION: No evidence acute cervical fracture or dislocation. Dictated by: Anthony Puentes M.D. on 12/22/2019 at 19:00 Approved by: Anthony Puentes M.D. on 12/22/2019 at 19:02 ECG Data Attestation: I personally reviewed and interpreted this ECG as follows: Prior ECG tracings: not available for review Interpretation: Normal sinus rhythm rate at 70. Normal Waldo. CA int 132, QRS duration 90, QT/QTC 390/410. No ST elevation or depression. [facility] Narrative Medical decision making narrative: There was no focal neuro deficit and neuro exam was unremarkable. Despite patient reports a lump in posterior lower neck, I was not able to appreciate swelling by palpation. There was no obvious signs of redness or warmth noted. NIHSS score 0. CT of head without acute findings such as hemorrhage, tumor. C-spine CT does not appreciate fracture, dislocation, hematoma. Prevertebral and para vertebral soft tissue are normal in thickness. There was a shotty bilateral cervical adenopathy per CT test which was not appreciated per physical exam. No leukocytosis, ESR, CRP indicate an early infection. Chemistry test was unremarkable except mildly elevated AST and ALT. There is no increased lipase or bilirubin. Patient does not report any abdominal discomfort or appreciated upper abdominal pain during exam. Patient was medicated with IV fluid, Toradol and tylenol for discomfort which helped with her symptoms. EKG was normal sinus rhythm. Urine test was negative. No obvious signs of UTI. It is not clear the cause of patient's syncopal episode except patient could be dehydrated with and . Patient advised to follow-up with PCP for further evaluation on syncopal episode. Patient's posterior neck will be treated as musculoskeletal discomfort at this time. Patient was treated with Flexeril and lidocaine patch and discharged to home with this medication and advised to use [id number] Tylenol and or Motrin as needed. Return precautions were discussed with the patient and patient verbalized the understanding and in agreement with treatment plan. <Yousif Everett MD - Last Filed: 12/23/19 23:17> Lab Data Labs: Lab Results 12/22/19 12/22/19 Range/Units 18:40 18:40 WBC 5.4 (4.5-11.0) X10^3/uL RBC 4.62 (4.0-5.2) X10^6/uL Hgb 15.3 (12.0-16.0) g/dL Hct 44.4 (36-46) % MCV 96.0 (80-100) fL MCH 33.0 (26-34) PG MCHC 34.4 (30-36) % RDW 12.9 (11.6-14.8) % Plt Count 203 (150-400) X10^3/uL Neut % (Auto) 49.7 L (50-75) % Lymph % (Auto) 36.2 (25-40) % Sanders % (Auto) 11.7 (3-14) % Eos % (Auto) 1.2 L (2-4) % Baso % (Auto) 1.2 (0-2) % Neut # (Auto) 2700 (8703-9442) /uL Lymph # (Auto) 1900 (1962-4732) /uL Sanders # (Auto) 600 (0-900) /uL Eos # (Auto) 100 (0-450) /uL Baso # (Auto) 100 (0-100) /uL ESR 1 (0-20) MM/HR Sodium 138 (137-145) mmol/L Potassium 3.8 (3.4-5.1) mmol/L Chloride 100 (98-107) mmol/L Carbon Dioxide 26 (22-32) mmol/L BUN 11 (7-17) mg/dL Creatinine 0.50 L (0.52-1.04) mg/dL Estimated GFR > 60.0 (>60) mL/min BUN/Creatinine Ratio 22.0 (6-22) Glucose 73 (70-100) mg/dL Calcium 9.5 (8.4-10.2) mg/dL Total Bilirubin 0.3 (0.2-1.3) mg/dL AST 148 H (14-36) IU/L ALT 147 H (<35) IU/L Alkaline Phosphatase 103 (38-126) U/L C-Reactive Protein < 0.5 (<1.0) mg/dL Total Protein 8.3 H (6.3-8.2) g/dL Albumin 4.9 (3.5-5.0) g/dL Globulin 3.4 (1.7-4.1) g/dL Albumin/Globulin Ratio 1.4 (1.0-2.8) Point of Care Testing Test Results Negative Urine Dip Bedside Urine Glucose Negative Bedside Urine Bilirubin - Negative Bedside Urine Ketone - Negative Urine Specific Seguin 1.015 Bedside Urine Occult Blood - Negative Bedside Urine pH 6.5 Bedside Urine Protein +/- 15 Bedside Urine Urobilinogen +/- 1mg Bedside Urine Nitrite - Negative Bedside Urine Leukocytes +/- 15 Esterase Discharge Plan Departure Patient Disposition: Home Clinical Impression: Posterior neck pain, Lightheadedness Syncope Qualifiers: Syncope type: unspecified Qualified Code(s): R55 - Syncope and collapse Discharge Date/Time: 12/22/19 21:17 Activity Restrictions/Additional Instructions: You have been diagnosed with [syncope, posterior neck pain and swelling. Your lab tests were unremarkable except mildly elevated liver function test which shows trend of this from previous time. There is no indication of indication of infection per blood test. CT scan of head CT and spine does not show acute findings. Your EKG was normal sinus rhythm. Urine is pending for culture you will receive a phone call if you need a coverage for antibiotic medication. Will treat her discomfort as musculoskeletal etiology at this time.]. What to do: *Take your medications as directed. You can take [id number] Tylenol and or Motrin as needed for discomfort. Tylenol 650 mg 4 times a day as needed. Ibuprofen 400 mg 3 to 4 times a day as needed for discomfort with food. You can use Flexeril for muscle spasm or tightness and this medication may cause drowsiness so please take precautions. Please do not drive, take alcohol or operate heavy equipments. Lidocaine patch for discomfort in the stays on for 12 hours and off for 12 hours. You have an allergies to adhesives if this cause trouble please stop using it. These medications were transmitted to [facility] in [place]. *Follow up with your primary care provider in 2-3 days, call for an appointment. Let them know you were seen in the ED and that we asked you to be seen in follow up for passing out. Please follow-up with the neurology clinic to make an appointment. *Return to ED if you have any new, worsening, or concerning symptoms, such as [chest pain, breathing difficulty, unable to tolerate fluids, passing out, fever, tingling/numbness/weakness to upper extremities, severe headache, vision change, speech difficulty, facial droops or any acute concerns]. Prescriptions: New cyclobenzaprine 10 mg tablet 5 - 10 mg PO BEDTIME PRN (Reason: muscle spasm) Qty: 7 RF: 0 lidocaine 5 % adhesive patch,medicated 1 patch TOP Q24H Qty: 30 RF: 0 Referrals: Gloria Simeon ARNP [[employer]] - Sara Paredes MD [Primary Care Provider] -
--- NOTE | 2020-01-24 14:02 | PC.NURSE ---
Late entry: IV NS 1000 ml bolus complete at 2016 hrs.
== END 2019-12-22 21:17 | disposition home or self-care (01) ==
PROVIDERS: Emergency Provider Nurse Practitioner Family; PCP Specialist
DX: M54.2 Cervicalgia (principal); R42 Dizziness and giddiness; R55 Syncope and collapse
CPT/HCPCS: 70450; 72125; 80053; 81003; 81025; 85025; 85651; 86140; 93005; 96361; 96374; 99284; J1885

== ENCOUNTER 2020-06-22 15:03 | Emergency (ER) | payer OTHER, MEDICAID, SELFPAY ==
[2020-06-22] VITALS (11 sets, daily range): BP systolic 153–157; BP diastolic 83–95; PULSE 87–116; RESP 22–24; TEMP 36.2; O2SAT 96–100; BMI 21.7
--- NOTE | 2020-06-22 15:20 | DI.US.S_ITS ---
PROCEDURE: US RENAL COMPLETE INDICATIONS: RIGHT FLANK PAIN TECHNIQUE: Real-time scanning was performed of the kidneys and bladder, with image documentation. COMPARISON: [facility], , US ABDOMEN COMPLETE, 08/15/2018, 14:32. FINDINGS: Kidneys: Kidneys are normal in size. Right kidney measures 11.5 cm long; left kidney measures 10.7 cm long. Right renal cortical thickness is 1.2 cm; left renal cortical thickness is 1.8 cm. Renal cortical echotexture is normal. No hydronephrosis or nephrolithiasis. No suspicious solid mass lesions. Bladder: Pre-void bladder volume is 351 mL. Post-void residual is 0 mL. Pre-void images demonstrate no intraluminal masses or stones. On pre-void images, only the left ureteral jet can be seen with color Doppler interrogation. (Of note, ureteral jets may not be detectable in up to 25% of cases due to insufficient differences in specific gravity between ureteral and bladder urine). Miscellaneous: No free pelvic fluid. IMPRESSION: Absence of the right ureteral jet, without hydronephrosis seen on either side. If it would be helpful for clinical management decision making, please consider a dedicated noncontrast CT of the abdomen and pelvis for further evaluation Dictated by: Derrell Brown M.D. on 06/22/2020 at 16:26 Approved by: Derrell Brown M.D. on 06/22/2020 at 16:27
[2020-06-22] MEDS: SODIUM CHLORIDE 0.9% 1,000 ML 1000 ML IV (15:28)
[2020-06-22] MEDS: KETOROLAC 60 MG/2 ML VIAL 30 MG IV (15:28)
[2020-06-22] MEDS: ONDANSETRON 4 MG/2 ML INJ IV (15:28)
[2020-06-22 15:30] LABS: Add Manual Diff / Slide Review NO; Basophils Absolute Auto 200 /uL (0-100); Basophils Percent Auto 3.6 % (0-2); Eosinophils Absolute Auto 0 /uL (0-450); Eosinophils Percent Auto 0.5 % (2-4); Hematocrit 41.7 % (36-46); Hemoglobin 14.2 g/dL (12.0-16.0); Lymphocytes Absolute Auto 600 /uL (1100-4500); Lymphocytes Percent Auto 9.1 % (25-40); Mean Corpuscular HGB Conc 34.2 % (30-36); Mean Corpuscular Hemoglobin 33.7 PG (26-34); Mean Corpuscular Volume 98.7 fL (80-100); Monocytes Absolute Auto 400 /uL (0-900); Neutrophils Absolute Auto 5600 /uL (1500-7000); Neutrophils Percent Auto 80.8 % (50-75); Platelet Count 171 X10^3/uL (150-400); Red Blood Cell Count 4.22 X10^6/uL (4.0-5.2); Red Cell Distribution Width 13.1 % (11.6-14.8); White Blood Cell Count 6.9 X10^3/uL (4.5-11.0)
[2020-06-22 15:38] LABS: Alanine Aminotransferase 74 IU/L (<35); Albumin 5.1 g/dL (3.5-5.0); Albumin Globulin Ratio 1.4 (1.0-2.8); Alkaline Phosphatase 126 U/L (38-126); Aspartate Aminotransferase 135 IU/L (14-36); BUN Creatinine Ratio 15.9 (6-22); Bilirubin Total 0.8 mg/dL (0.2-1.3); Blood Urea Nitrogen 7 mg/dL (7-17); Calcium 9.9 mg/dL (8.4-10.2); Carbon Dioxide 25 mmol/L (22-32); Chloride 97 mmol/L (98-107); Estimated Glomerular Filt Rate > 60.0 mL/min (>60); Globulin 3.7 g/dL (1.7-4.1); Glucose 101 mg/dL (70-100); HEMOLYSIS < 15 (0-50); Lipase 57 U/L (23-300); Potassium 3.4 mmol/L (3.4-5.1); Sodium 135 mmol/L (137-145); Total Protein 8.8 g/dL (6.3-8.2)
--- NOTE | 2020-06-22 16:05 | ED_ITS ---
HPI - Female Genitourinary <Camille Nogueira DO - Last Filed: 06/23/20 07:36> General Chief complaint: Urogenital-Female Stated complaint: thinks she has a kidney stone Time Seen by Provider: 06/22/20 15:04 Source: patient Mode of arrival: Wheelchair Limitations: no limitations History of Present Illness HPI Narrative: Patient is a 29 year old female with history of kidney stone presenting with right-sided flank pain which started suddenly this morning at 10:00 a.m.. She says the pain is constant but it intensifies she feels nauseous and has been throwing up and feels like she is dehydrated. Pain feels like her previous kidney stone. She said she was diagnosed with a kidney stone last week by ultrasound. She says she has had at least 3 or 4 CAT scans this year already, she has been diagnosed with Riky's disease is in is followed with [facility]. Related Data Previous Rx's Medication Instructions Recorded clindamycin phosphate 1 % topical 1 applictn TOP DAILY #30 ml 05/07/20 solution triamcinolone acetonide 0.1 % 1 applictn TOP BID #45 gram 05/07/20 topical cream Allergies Allergy/AdvReac Type Severity Reaction Status Date / Time adhesive tape Allergy Mild Verified 06/22/20 15:13 codeine Allergy Verified 06/22/20 15:13 medroxyprogesterone Allergy itching, Verified 06/22/20 15:13 swelling Sulfa (Sulfonamide Allergy Verified 06/22/20 15:13 Antibiotics) Review of Systems <DO Mirian Aguilera Last Filed: 06/23/20 07:36> Review of Systems Narrative: GENERAL: Denies chills, fatigue, malaise, fever, sweats, travel HEENT: Denies sinus pain, ear pain, sore throat, difficulty swallowing, neck pain RESPIRATORY: Denies dyspnea, cough, wheezing, hemoptysis, sputum. CARDIOVASCULAR: Denies chest pain, palpitations, orthopnea, edema GASTROINTESTINAL: Denies nausea, vomiting, abdominal pain, diarrhea, cons tipation, melena. : See HPI MUSCULOSKELETAL: Denies weakness, joint pain, or bony pain SKIN: No rash, no erythema, no pruritus NEUROLOGIC: Denies weakness, dizziness, headache, numbness, change in speech, confusion PSYCHIATRIC: No concerning psychosocial issues. 12 point review of systems is negative except for those stated above and HPI Patient History <Camille Nogueira DO - Last Filed: 06/23/20 07:36> Medical History Bartholin's gland abscess (Resolved) Cataplexy (Acute) Contact dermatitis (Acute) Hearing loss in right ear (Acute) Hepatic steatosis (Acute) Impacted cerumen of right ear (Resolved) Ingrown toenail of right foot (Resolved) Narcolepsy and cataplexy (Acute) Peptic ulcer disease (Acute) Perioral dermatitis (Acute) Seizure disorder (Acute) Surgical History Anesthesia (Resolved) History of esophagogastroduodenoscopy (EGD) (Inactive) History of tonsillectomy (Resolved ~2003) Family History Father Cancer Mother Cancer History of heart disease Grandfather Cancer Diabetes mellitus Grandmother Cancer Diabetes mellitus Grandfather Cancer Diabetes mellitus Grandmother Cancer Diabetes mellitus alcohol intake frequency: holidays/special occasions only Substance Use Type: does not use Exam <Camille Nogueira DO - Last Filed: 06/23/20 07:36> Initial Vital Signs Initial Vital Signs: Vital Signs Temperature 97.1 F L 06/22/20 15:07 Pulse Rate 116 H 06/22/20 15:07 Respiratory Rate 24 06/22/20 15:07 Blood Pressure 153/83 H 06/22/20 15:07 Pulse Oximetry 100 06/22/20 15:07 GENERAL: Young female appears in significant pain HEENT: Head atraumatic,EOMI, pupils reactive, face symmetric, moist mucous membranes CARDIOVASCULAR: Regular rate and rhythm without murmurs, rubs or gallops. RESPIRATORY: Breath sounds equal bilaterally, no wheezes rales or rhonchi. ABDOMEN: Soft, nontender. Normoactive bowel sounds all 4 quadrants. No guarding or rebound. : Right CVA tenderness EXTREMITIES: Normal range of motion, no clubbing or edema. Neurovascularly intact NEUROLOGICAL: Alert and oriented x4.Normal gait and speech. Cranial nerves II through XII grossly intact. SKIN: Warm, dry, no laceration, no petechiae, no rashes or lesions. <Fransisco Aly DO - Last Filed: 06/22/20 20:21> Initial Vital Signs Initial Vital Signs: Vital Signs Temperature 97.1 F L 06/22/20 15:07 Pulse Rate 116 H 06/22/20 15:07 Respiratory Rate 24 06/22/20 15:07 Blood Pressure 153/83 H 06/22/20 15:07 Pulse Oximetry 100 06/22/20 15:07 Course <Camille Mirlande DO - Last Filed: 06/23/20 07:36> Orders Ordered: Discontinued Medications Sodium Chloride (Normal Saline 0.9%) 1,000 mls @ 1,000 mls/hr IV CONT DAVID Last Infusion: 06/22/20 16:37 Dose: 1,000 mls/hr Documented by: Infusion: 06/22/20 16:20 Dose: 1,000 mls/hr Documented by: Admin: 06/22/20 15:28 Dose: 1,000 mls/hr Documented by: ADAL Lidocaine HCl 4.6 ml/ Sodium (Chloride) 54.6 mls @ 327.6 mls/hr IV NOW ONE Stop: 06/22/20 15:54 Last Infusion: 06/22/20 16:27 Dose: 327.6 mls/hr Documented by: Admin: 06/22/20 16:14 Dose: 327.6 mls/hr Documented by: ADAL Ketorolac Tromethamine (Toradol) 30 mg IV NOW ONE Stop: 06/22/20 15:20 Last Admin: 06/22/20 15:28 Dose: 30 mg Documented by: ADAL Ondansetron HCl (Zofran) 4 mg IV NOW ONE Stop: 06/22/20 15:20 Last Admin: 06/22/20 15:28 Dose: 4 mg Documented by: ADAL Vital Signs Vital signs: Vital Signs - 8 hr 06/22/20 15:07 06/22/20 15:10 06/22/20 15:11 Temperature 97.1 F L Pulse Rate 116 H 114 H 116 H Respiratory Rate 24 Blood Pressure 153/83 H 153/83 H Pulse Oximetry 100 99 100 06/22/20 15:30 06/22/20 16:00 06/22/20 16:30 Temperature Pulse Rate 104 H 99 H 92 H Respiratory Rate 22 Blood Pressure Pulse Oximetry 98 96 97 06/22/20 17:00 06/22/20 17:30 06/22/20 18:00 Temperature Pulse Rate 93 H 90 94 H Respiratory Rate Blood Pressure Pulse Oximetry 96 96 97 06/22/20 18:21 06/22/20 18:22 Temperature Pulse Rate 87 Respiratory Rate Blood Pressure 157/95 H Pulse Oximetry 97 <Fransisco Lu, - Last Filed: 06/22/20 20:21> Orders Ordered: Discontinued Medications Sodium Chloride (Normal Saline 0.9%) 1,000 mls @ 1,000 mls/hr IV CONT DAVID Last Infusion: 06/22/20 16:37 Dose: 1,000 mls/hr Documented by: Infusion: 06/22/20 16:20 Dose: 1,000 mls/hr Documented by: Admin: 06/22/20 15:28 Dose: 1,000 mls/hr Documented by: ADAL Lidocaine HCl 4.6 ml/ Sodium (Chloride) 54.6 mls @ 327.6 mls/hr IV NOW ONE Stop: 06/22/20 15:54 Last Infusion: 06/22/20 16:27 Dose: 327.6 mls/hr Documented by: Admin: 06/22/20 16:14 Dose: 327.6 mls/hr Documented by: ADAL Ketorolac Tromethamine (Toradol) 30 mg IV NOW ONE Stop: 06/22/20 15:20 Last Admin: 06/22/20 15:28 Dose: 30 mg Documented by: ADAL Ondansetron HCl (Zofran) 4 mg IV NOW ONE Stop: 06/22/20 15:20 Last Admin: 06/22/20 15:28 Dose: 4 mg Documented by: ADAL Vital Signs Vital signs: Vital Signs - 8 hr 06/22/20 15:07 06/22/20 15:10 06/22/20 15:11 Temperature 97.1 F L Pulse Rate 116 H 114 H 116 H Respiratory Rate 24 Blood Pressure 153/83 H 153/83 H Pulse Oximetry 100 99 100 06/22/20 15:30 06/22/20 16:00 06/22/20 16:30 Temperature Pulse Rate 104 H 99 H 92 H Respiratory Rate 22 Blood Pressure Pulse Oximetry 98 96 97 06/22/20 17:00 06/22/20 17:30 06/22/20 18:00 Temperature Pulse Rate 93 H 90 94 H Respiratory Rate Blood Pressure Pulse Oximetry 96 96 97 06/22/20 18:21 06/22/20 18:22 Temperature Pulse Rate 87 Respiratory Rate Blood Pressure 157/95 H Pulse Oximetry 97 MDM - Female Genitourinary <Camille Edgarrafa - Last Filed: 06/23/20 07:36> Lab Data Attestation: I reviewed the patient's lab results. Result diagrams: 06/22/20 15:16 06/22/20 15:16 Labs: Lab Results 06/22/20 06/22/20 06/22/20 Range/Units 15:16 15:16 17:42 WBC 6.9 (4.5-11.0) X10^3/uL RBC 4.22 (4.0-5.2) X10^6/uL Hgb 14.2 (12.0-16.0) g/dL Hct 41.7 (36-46) % MCV 98.7 (80-100) fL MCH 33.7 (26-34) PG MCHC 34.2 (30-36) % RDW 13.1 (11.6-14.8) % Plt Count 171 (150-400) X10^3/uL Neut % (Auto) 80.8 H (50-75) % Lymph % (Auto) 9.1 L (25-40) % [place] % (Auto) 6.0 (3-14) % Eos % (Auto) 0.5 L (2-4) % Baso % (Auto) 3.6 H (0-2) % Neut # (Auto) 5600 (7375-1173) /uL Lymph # (Auto) 600 L (0790-9790) /uL [place] # (Auto) 400 (0-900) /uL Eos # (Auto) 0 (0-450) /uL Baso # (Auto) 200 H (0-100) /uL Sodium 135 L (137-145) mmol/L Potassium 3.4 (3.4-5.1) mmol/L Chloride 97 L (98-107) mmol/L Carbon Dioxide 25 (22-32) mmol/L BUN 7 (7-17) mg/dL Creatinine 0.44 L (0.52-1.04) mg/dL Estimated GFR > 60.0 (>60) mL/min BUN/Creatinine Ratio 15.9 (6-22) Glucose 101 H (70-100) mg/dL Calcium 9.9 (8.4-10.2) mg/dL Total Bilirubin 0.8 (0.2-1.3) mg/dL AST 135 H (14-36) IU/L ALT 74 H (<35) IU/L Alkaline Phosphatase 126 (38-126) U/L Total Protein 8.8 H (6.3-8.2) g/dL Albumin 5.1 H (3.5-5.0) g/dL Globulin 3.7 (1.7-4.1) g/dL Albumin/Globulin Ratio 1.4 (1.0-2.8) Lipase 57 (23-300) U/L Urine RBC None seen (0-5/HPF) Urine WBC None seen (0-5/HPF) Urine Bacteria None seen (None) Ur Culture Indicated? Cult not indicated Micro UA Comment Microscopic normal Point of Care Testing Test Results Negative Urine Dip Bedside Urine Glucose Negative Bedside Urine Bilirubin - Negative Bedside Urine Ketone ++ 40 Urine Specific [place] 1.005 Bedside Urine Occult Blood - Negative Bedside Urine pH 8.5 Bedside Urine Protein - Negative Bedside Urine Urobilinogen - Negative Bedside Urine Nitrite - Negative Bedside Urine Leukocytes - Negative Esterase Imaging Data US - abdomen: Radiologist's Impression: PROCEDURE: CT KIDNEY URETER BLADDER (KUB) INDICATIONS: right flank pain TECHNIQUE: Noncontrast 5 mm thick sections acquired from the diaphragms to the symphysis. 5 mm thick coronal and sagittal reformats were then performed. For radiation dose reduction, the following was used: automated exposure control, adjustment of mA and/or kV according to patient size. COMPARISON: None. FINDINGS: Image quality: Excellent. Lung bases: Lung bases are clear. Heart size is normal. Urinary system: Both kidneys are normal in size. No kidney stones. No h ydronephrosis or perinephric fat stranding. Both ureters appear non-dilated throughout their expected courses. Bladder wall thickness is normal; no calcified bladder stones. Other solid organs: There is diffuse severe fatty infiltration of the liver that is slightly more prominent in the right hepatic lobe. The gallbladder appears normal. Pancreas is normal in contours. Spleen is normal in size. No adrenal nodules. Peritoneum and bowel: The appendix measures 6 mm in short axis diameter without surrounding inflammatory fat stranding. Findings are favored to represent normal variation rather than early or mild appendicitis. There are no signs of bowel obstruction. Nodes and vessels: No retroperitoneal or mesenteric adenopathy by size criteria. Aorta and inferior vena cava are normal in caliber. Abdominal wall: No ventral hernias. Pelvis: No free pelvic fluid. No inguinal hernias or adenopathy. The uterus appears normal. Bones: No suspicious bony lesions. No vertebral body compression fractures. IMPRESSION: 1. No renal or ureteral calculus. No hydronephrosis. 2. The appendix is borderline in size at 6 mm in diameter without secondary signs of acute appendicitis. Findings are most likely represent normal variation, but clinical correlation is recommended to exclude early acute appendicitis. 3. Diffuse hepatic steatosis. Dictated by: Gonsalo Zepeda M.D. on 06/22/2020 at 18:01 Approved by: Gonsalo Zepeda M.D. on 06/22/2020 at 18:0 MDM Narrative Medical decision making narrative: Pain in heart rate improved after Toradol however she continues to have pain. Lidocaine is ordered. Pain improved. Records actually reviewed from [facility] she was seen evaluated there last week for vaginal bleeding. Today are hemoglobin hematocrit are stable and within normal range. She does not complain of any excess bleeding today. Due to continuous pain will get CT. Sign out to dr. lu CT results pending <Fransisco Lu, DO - Last Filed: 06/22/20 20:21> Lab Data Labs: Lab Results 06/22/20 06/22/20 06/22/20 Range/Units 15:16 15:16 17:42 WBC 6.9 (4.5-11.0) X10^3/uL RBC 4.22 (4.0-5.2) X10^6/uL Hgb 14.2 (12.0-16.0) g/dL Hct 41.7 (36-46) % MCV 98.7 (80-100) fL MCH 33.7 (26-34) PG MCHC 34.2 (30-36) % RDW 13.1 (11.6-14.8) % Plt Count 171 (150-400) X10^3/uL Neut % (Auto) 80.8 H (50-75) % Lymph % (Auto) 9.1 L (25-40) % [place] % (Auto) 6.0 (3-14) % Eos % (Auto) 0.5 L (2-4) % Baso % (Auto) 3.6 H (0-2) % Neut # (Auto) 5600 (7100-8809) /uL Lymph # (Auto) 600 L (8681-8480) /uL [place] # (Auto) 400 (0-900) /uL Eos # (Auto) 0 (0-450) /uL Baso # (Auto) 200 H (0-100) /uL Sodium 135 L (137-145) mmol/L Potassium 3.4 (3.4-5.1) mmol/L Chloride 97 L (98-107) mmol/L Carbon Dioxide 25 (22-32) mmol/L BUN 7 (7-17) mg/dL Creatinine 0.44 L (0.52-1.04) mg/dL Estimated GFR > 60.0 (>60) mL/min BUN/Creatinine Ratio 15.9 (6-22) Glucose 101 H (70-100) mg/dL Calcium 9.9 (8.4-10.2) mg/dL Total Bilirubin 0.8 (0.2-1.3) mg/dL AST 135 H (14-36) IU/L ALT 74 H (<35) IU/L Alkaline Phosphatase 126 (38-126) U/L Total Protein 8.8 H (6.3-8.2) g/dL Albumin 5.1 H (3.5-5.0) g/dL Globulin 3.7 (1.7-4.1) g/dL Albumin/Globulin Ratio 1.4 (1.0-2.8) Lipase 57 (23-300) U/L Urine RBC None seen (0-5/HPF) Urine WBC None seen (0-5/HPF) Urine Bacteria None seen (None) Ur Culture Indicated? Cult not indicated Micro UA Comment Microscopic normal Point of Care Testing Test Results Negative Urine Dip Bedside Urine Glucose Negative Bedside Urine Bilirubin - Negative Bedside Urine Ketone ++ 40 Urine Specific [place] 1.005 Bedside Urine Occult Blood - Negative Bedside Urine pH 8.5 Bedside Urine Protein - Negative Bedside Urine Urobilinogen - Negative Bedside Urine Nitrite - Negative Bedside Urine Leukocytes - Negative Esterase MDM Narrative Medical decision making narrative: Dr lu: Received turned over. Reviewed patient's history and physical and labs. Reviewed patient's radiologic studies. Perform my own independent evaluation. Patient's CT scan does show an appendix at the upper limit of normal however she is afebrile, no white blood cell count, and her exam is not consistent with appendicitis and there are no secondary signs of appendicitis on the CT scan. I did inform her that if her symptoms do change in present more like appendicitis that she should return to the emergency department for further evaluation of this. Her CT scan shows no signs of kidney stone. I have low suspicion this is an ovarian issue based on her exam. Her skin is unchanged. Unsure the exact diagnosis however I do not feel that there was an emergent issue. Do not feel the patient needs admitted to the hospital. Do not feel the patient needs a surgical consultation. Did discuss the use of [id number] anti-inflammatories. She is going to contact her primary provider. She was given return precautions. She expressed understanding and agreement plan. Discharge Plan Departure Patient Disposition: Home Clinical Impression: Acute right flank pain Discharge Date/Time: 06/22/20 18:45 Instructions: DI for Flank Pain Activity Restrictions/Additional Instructions: Recommend that you continue all of your medications as directed. Tomorrow contact your primary provider for a follow-up. Return to the emergency department for any new or worsening symptoms Prescriptions: No Action triamcinolone acetonide 0.1 % cream 1 applictn TOP BID Qty: 45 RF: 0 clindamycin phosphate 1 % solution 1 applictn TOP DAILY Qty: 30 RF: 0 Referrals: Gloria Simeon ARNP [Primary Care Provider] -
[2020-06-22] MEDS: SODIUM CHLORIDE 0.9% IV (16:14)
[2020-06-22] MEDS: LIDOCAINE 2% IV (16:14)
[2020-06-22 17:43] LABS: Bacteria Urine None Seen; RBC Urine None Seen (0-5/HPF); WBC Urine None Seen (0-5/HPF)
--- NOTE | 2020-06-22 17:43 | DI.CT.S_ITS ---
PROCEDURE: CT KIDNEY URETER BLADDER (KUB) INDICATIONS: right flank pain TECHNIQUE: Noncontrast 5 mm thick sections acquired from the diaphragms to the symphysis. 5 mm thick coronal and sagittal reformats were then performed. For radiation dose reduction, the following was used: automated exposure control, adjustment of mA and/or kV according to patient size. COMPARISON: None. FINDINGS: Image quality: Excellent. Lung bases: Lung bases are clear. Heart size is normal. Urinary system: Both kidneys are normal in size. No kidney stones. No hydronephrosis or perinephric fat stranding. Both ureters appear non-dilated throughout their expected courses. Bladder wall thickness is normal; no calcified bladder stones. Other solid organs: There is diffuse severe fatty infiltration of the liver that is slightly more prominent in the right hepatic lobe. The gallbladder appears normal. Pancreas is normal in contours. Spleen is normal in size. No adrenal nodules. Peritoneum and bowel: The appendix measures 6 mm in short axis diameter without surrounding inflammatory fat stranding. Findings are favored to represent normal variation rather than early or mild appendicitis. There are no signs of bowel obstruction. Nodes and vessels: No retroperitoneal or mesenteric adenopathy by size criteria. Aorta and inferior vena cava are normal in caliber. Abdominal wall: No ventral hernias. Pelvis: No free pelvic fluid. No inguinal hernias or adenopathy. The uterus appears normal. Bones: No suspicious bony lesions. No vertebral body compression fractures. IMPRESSION: 1. No renal or ureteral calculus. No hydronephrosis. 2. The appendix is borderline in size at 6 mm in diameter without secondary signs of acute appendicitis. Findings are most likely represent normal variation, but clinical correlation is recommended to exclude early acute appendicitis. 3. Diffuse hepatic steatosis. Dictated by: Gonsalo Zepeda M.D. on 06/22/2020 at 18:01 Approved by: Gonsalo Zepeda M.D. on 06/22/2020 at 18:07
[2020-06-22 17:55] LABS: Culture Indicated Urine Cult Not Indicated; Urine Comments Microscopic Normal
== END 2020-06-22 18:45 | disposition home or self-care (01) ==
PROVIDERS: Emergency Medicine; Emergency Provider Emergency Medicine; PCP Nurse Practitioner Family
DX: R10.9 Unspecified abdominal pain (principal); R11.0 Nausea; Z87.442 Personal history of urinary calculi
CPT/HCPCS: 36415; 74176; 76770; 80053; 81003; 81015; 81025; 83690; 85025; 96361; 96374; 96375; 99284; J1885; J2405

== ENCOUNTER → 2022-12-31 16:49 | Outpatient (CLI) | payer OTHER, MEDICAID, SELFPAY | PROVIDERS: PCP Nurse Practitioner Family; Visit Provider Student in an Organized Health Care Education/Training Program | DX: R10.9 Unspecified abdominal pain (principal) | CPT/HCPCS: 87086 ==

== ENCOUNTER → 2022-12-31 17:44 | Outpatient (CLI) | payer OTHER, MEDICAID, SELFPAY ==
[2022-12-31 17:58] LABS: Add Manual Diff / Slide Review NO; Basophils Absolute Auto 0 /uL (0-100); Basophils Percent Auto 0.7 % (0-2); Eosinophils Absolute Auto 100 /uL (0-450); Eosinophils Percent Auto 1.2 % (2-4); Hematocrit 36.7 % (36-46); Hemoglobin 12.4 g/dL (12.0-16.0); Lymphocytes Absolute Auto 2400 /uL (1100-4500); Mean Corpuscular Hemoglobin 27.5 PG (26-34); Mean Corpuscular Volume 81.1 fL (80-100); Monocytes Absolute Auto 400 /uL (0-900); Monocytes Percent Auto 6.8 % (3-14); Neutrophils Absolute Auto 3300 /uL (1500-7000); Neutrophils Percent Auto 53.3 % (50-75); Platelet Count 163 X10^3/uL (150-400); Red Blood Cell Count 4.52 X10^6/uL (4.0-5.2); Red Cell Distribution Width 14.4 % (11.6-14.8); White Blood Cell Count 6.3 X10^3/uL (4.5-11.0)
[2022-12-31 18:17] LABS: Alanine Aminotransferase 27 IU/L (<35); Albumin 4.7 g/dL (3.5-5.0); Albumin Globulin Ratio 1.4 (1.0-2.8); Alkaline Phosphatase 95 U/L (38-126); Aspartate Aminotransferase 34 IU/L (14-36); Bilirubin Total 0.5 mg/dL (0.2-1.3); Blood Urea Nitrogen 11 mg/dL (7-17); C-Reactive Protein Quant < 0.5 mg/dL (<1.0); Calcium 9.1 mg/dL (8.4-10.2); Carbon Dioxide 27 mmol/L (22-32); Chloride 101 mmol/L (98-107); Estimated Glomerular Filt Rate > 60 mL/min (>60); Globulin 3.3 g/dL (1.7-4.1); Glucose 87 mg/dL (70-100); HEMOLYSIS < 15 (0-50); Lactate (Lactic Acid) 0.6 mmol/L (0.7-2.1); Potassium 3.9 mmol/L (3.4-5.1); Sodium 138 mmol/L (137-145)
== END ==
PROVIDERS: PCP Nurse Practitioner Family; Referring Provider Student in an Organized Health Care Education/Training Program; Visit Provider Student in an Organized Health Care Education/Training Program
DX: R10.9 Unspecified abdominal pain (principal)
CPT/HCPCS: 36415; 80053; 81002; 83605; 85025; 86140; 87086

== ENCOUNTER 2023-01-10 10:57 | Emergency (ER) | payer OTHER, MEDICAID, SELFPAY ==
[2023-01-10 11:08] VITALS: BP 146/81; PULSE 106; RESP 12; TEMP 37.6; O2SAT 99; BMI 24.2
--- NOTE | 2023-01-10 11:50 | PC.NURSE ---
patient VDC. she reported that she was going to go to the . charge and [facility] aware.
--- NOTE | 2023-01-10 18:46 | ED.CHESTPAIN ---
HPI - Chest Pain General Chief Complaint: Chest Pain Stated Complaint: thinks she has shingles T-7 Mode of arrival: Family Vehicle History of Present Illness HPI narrative: Patient left without being seen. Related Data Previous Rx's Medication Instructions Recorded clindamycin phosphate 1 % topical 1 applictn topical DAILY #30 mL 05/07/20 solution triamcinolone acetonide 0.1 % 1 applictn topical BID #45 grams 05/07/20 topical cream Allergies Allergy/AdvReac Type Severity Reaction Status Date / Time adhesive tape Allergy Mild Verified 01/10/23 11:10 codeine Allergy Verified 01/10/23 11:10 medroxyprogesterone Allergy itching, Verified 01/10/23 11:10 swelling Sulfa (Sulfonamide Allergy Verified 01/10/23 11:10 Antibiotics) Patient History Medical History (Updated 01/10/23 @ 11:52 by Beth Barahona RN) Bartholin's gland abscess Cataplexy Contact dermatitis Hearing loss in right ear Hepatic steatosis Impacted cerumen of right ear Ingrown toenail of right foot Narcolepsy and cataplexy Peptic ulcer disease Perioral dermatitis Seizure disorder Surgical History Anesthesia History of esophagogastroduodenoscopy (EGD) History of tonsillectomy (~2003) Family History Father Cancer Mother Cancer History of heart disease Grandfather Cancer Diabetes mellitus Grandmother Cancer Diabetes mellitus Grandfather Cancer Diabetes mellitus Grandmother Cancer Diabetes mellitus Social History household members: spouse and children Smoking Status: Never smoker second hand exposure: No alcohol intake: never substance use type: does not use Smoking Status: Never smoker alcohol intake frequency: holidays/special occasions only Substance Use Type: does not use Exam Initial Vital Signs Initial Vital Signs: Vital Signs Temperature 99.6 F 01/10/23 11:08 Pulse Rate 106 H 01/10/23 11:08 Respiratory Rate 12 01/10/23 11:08 Blood Pressure 146/81 H 01/10/23 11:08 Pulse Oximetry 99 01/10/23 11:08 Oxygen Delivery Method Room Air 01/10/23 11:08 Course Orders Ordered: ED Orders 01/10/23 11:23 EKG-12 Lead Stat Vital Signs Vital signs: Vital Signs - 8 hr 01/10/23 11:08 Temperature 99.6 F Pulse Rate 106 H Respiratory Rate 12 Blood Pressure 146/81 H Pulse Oximetry 99 Oxygen Delivery Method Room Air MDM - Chest Pain ECG Data Attestation: I personally reviewed and interpreted this ECG as follows: Prior ECG tracings: available for review Interpretation: Sinus rhythm rate of 98 NV 136 QRS 84 QTC of 454. No acute ST changes appreciated. Patient has prior from 12/22/2019 compared no acute change noted. Discharge Plan Departure Patient Disposition: Left Without Being Seen Clinical Impression: Patient left after triage Prescriptions: No Action triamcinolone acetonide 0.1 % cream 1 applictn TOP BID Qty: 45 0RF Rx Instructions: use over affected area BID for up to 2 weeks clindamycin phosphate 1 % solution 1 applictn TOP DAILY Qty: 30 0RF Rx Instructions: use every day until clear, may take 6 weeks
== END 2023-01-10 11:45 | disposition left against medical advice (07) ==
PROVIDERS: Emergency Provider Emergency Medicine; PCP Nurse Practitioner Family
DX: R07.9 Chest pain, unspecified (principal)
CPT/HCPCS: 93005; 99281

== ENCOUNTER 2023-06-22 16:15 | Emergency (ER) | payer OTHER, MEDICAID, SELFPAY ==
[2023-06-22 16:56] VITALS: BP 128/73; PULSE 102; RESP 18; TEMP 36.6; O2SAT 95; BMI 21.1
== END 2023-06-22 17:35 | disposition left against medical advice (07) ==
PROVIDERS: Emergency Provider Emergency Medicine; PCP Nurse Practitioner Family
CPT/HCPCS: 99281

== ENCOUNTER → 2023-09-21 09:48 | Oncology outpatient (ONC) | payer OTHER, MEDICAID, SELFPAY ==
[2023-09-21 09:58] VITALS: BP 111/63; PULSE 76; RESP 18; TEMP 37.2; O2SAT 98
[2023-09-21] MEDS: ALTEPLASE 2 MG/2 ML VIAL IV (10:12)
== END ==
LOC: ONC 09:49
PROVIDERS: Referring Provider Internal Medicine; Visit Provider Internal Medicine
DX: H70.91 Unspecified mastoiditis, right ear (principal)
CPT/HCPCS: 96374; J2997